=== PATIENT | male | born 1990 | race Two or more races ===

== ENCOUNTER → 2020-04-24 14:25 | Outpatient (BNVA) | payer OTHER, SELFPAY | PROVIDERS: PCP Internal Medicine; Visit Provider Internal Medicine | DX: S33.6XXD Sprain of sacroiliac joint, subsequent encounter (principal); X58.XXXD Exposure to other specified factors, subsequent encounter | CPT/HCPCS: 99213 ==

== ENCOUNTER 2021-11-03 15:53 | Outpatient (REF) | payer OTHER, MEDICAID, SELFPAY ==
[2021-11-03 18:45] LABS: Amphetamine Screen Urine Not Detected (Not Detect)
[2021-11-03 18:48] LABS: Amphetamine Screen Urine Not Detected (Not Detect); Barbiturates, Urine Not Detected (Not Detect); Benzodiazepines Screen Urine Not Detected (Not Detect); Cannabinoid Screen Urine Not Detected (Not Detect); Cocaine Screen Urine Not Detected (Not Detect); Fentanyl, urine Not Detected (Not Detect); Opiate Screen Urine Not Detected (Not Detect); Phencyclidine Screen Urine Not Detected (Not Detect)
[2021-11-07 06:31] LABS: Codeine, Ur Negative; Hydrocodone, Ur Negative; Oxycodone, Ur Negative
[2021-11-07 06:32] LABS: Hydromorphone, Ur Negative; Morphine, Ur Negative; Oxymorphone, Ur Negative
[2021-11-07 06:33] LABS: Norhydrocodone, Ur Negative; Noroxycodone, Ur Negative
[2021-11-07 06:34] LABS: Alphahydroxymidazolam,GCMS Ur Negative; Alphahydroxytriazolam, GCMS Ur Negative; Lorazepam GCMS Urine Negative; Nordiazepam, GCMS Urine Negative; Oxazepam, GCMS Urine Negative
[2021-11-07 06:35] LABS: Alprazolam, GCMS Urine Negative; Aminoclonazepam, GCMS Urine Negative; Flurazepam Metabolite,GCMS Ur Negative; Temazepam, GCMS Urine Negative
== END 2021-11-03 15:54 | disposition home or self-care (01) ==
LOC: HO.LAB 15:53
PROVIDERS: Visit Provider Nurse Practitioner Acute Care
DX: F11.90 Opioid use, unspecified, uncomplicated (principal); F41.9 Anxiety disorder, unspecified
CPT/HCPCS: 80307; 80346; 80364; 80365

== ENCOUNTER 2021-11-23 14:00 | Outpatient (REF) | payer OTHER, SELFPAY ==
[2021-11-23 14:31] LABS: MANUAL DIFF FLAG NO
[2021-11-23 14:58] LABS: Basophils Absolute Auto 0.1 X10*3/uL (0.0-0.2); Eosinophils Absolute Auto 0.2 X10*3/uL (0.0-0.4); Eosinophils Percent Auto 2.7 % (0-4); Hematocrit 49.7 % (42.0-52.0); Hemoglobin 15.9 g/dl (14.0-18.0); Imm Gran Abs Auto 0.05 X10*3/uL (0.00-0.03); Imm Gran Pct Auto 0.6 % (0.0-0.4); Lymphocytes Absolute Auto 2.7 X10*3/uL (1.2-4.9); Lymphocytes Percent Auto 31.7 % (20-40); Mean Corpuscular Hemoglobin 26.7 pg (27.0-33.0); Mean Corpuscular Volume 83.5 fL (80.0-98.0); Mean Platelet Volume 10.9 fL (9.4-12.4); Monocytes Absolute Auto 0.5 X10*3/uL (0.1-1.2); Monocytes Percent Auto 5.7 % (2-11); Neutrophils Absolute Auto 4.9 x10*3/uL (2.0-8.3); Neutrophils Percent Auto 58.3 % (45-73); Platelet Count 250 X10*3/uL (160-400); Red Blood Count 5.95 X10*6/uL (4.60-5.80); Red Cell Distribution Width 12.7 % (11.0-16.0); White Blood Count 8.4 X10*3/uL (4.8-10.8)
[2021-11-23 15:18] LABS: Alanine Aminotransferase 363 U/L (0-40); Albumin Level 4.2 g/dL (3.5-5.0); Alkaline Phosphatase 143 U/L (39-117); Anion Gap 13 (12-20); Aspartate Amino Transferase 256 U/L (5-37); Bilirubin Total 0.6 mg/dL (0.0-1.0); Blood Urea Nitrogen 10 mg/dL (9-16); Calcium 9.7 mg/dL (8.4-10.2); Carbon Dioxide 27 mmol/L (22-29); Chloride 101 mmol/L (96-108); Cholesterol 221 mg/dL; Estimated Glomerular Filt Rate > 60; Glucose Fasting 266 mg/dL (60-99); HDL Cholesterol 41 mg/dL; LDL Cholesterol Calculated 144 mg/dl; Potassium 4.5 mmol/L (3.3-5.1); Sodium 136 mmol/L (135-145); Triglycerides 180 mg/dL
[2021-11-23 15:19] LABS: Estimated Average Glucose 309 mg/dL; Hemoglobin A1c % 12.4 %
[2021-11-23 15:38] LABS: Folate 18.8 ng/mL (> or = 4.0); TSH reflex Free T4 2.19 uIU/mL (0.32-4.0); Vitamin B12 637 pg/mL (200-900)
[2021-11-28 13:00] LABS: Vitamin D 25-OH, D2 <4 ng/mL; Vitamin D 25-OH, D3 12 ng/mL; Vitamin D 25-OH, Total 12 ng/mL (30-100)
== END 2021-11-23 14:01 | disposition home or self-care (01) ==
LOC: HO.LAB 14:00
PROVIDERS: PCP Internal Medicine; Visit Provider Nurse Practitioner Acute Care
DX: Z00.00 Encounter for general adult medical examination without abnormal findings (principal)
CPT/HCPCS: 36415; 80053; 80061; 82306; 82607; 82746; 83036; 84443; 85025

== ENCOUNTER → 2022-07-21 13:54 | Outpatient (REF) | payer OTHER, SELFPAY | LOC: HO.SL 13:54 | PROVIDERS: PCP Internal Medicine; Visit Provider Internal Medicine | DX: G47.33 Obstructive sleep apnea (adult) (pediatric) (principal); R40.0 Somnolence; E66.9 Obesity, unspecified | CPT/HCPCS: 95806 ==

== ENCOUNTER → 2022-09-01 13:53 | Outpatient (BNVA) | payer OTHER, SELFPAY | PROVIDERS: PCP Internal Medicine; Visit Provider Nurse Practitioner Family | DX: G47.33 Obstructive sleep apnea (adult) (pediatric) (principal); G47.36 Sleep related hypoventilation in conditions classified elsewhere; E66.01 Morbid (severe) obesity due to excess calories; Z68.41 Body mass index [BMI] 40.0-44.9, adult | CPT/HCPCS: 99202 ==

== ENCOUNTER → 2022-10-12 19:30 | Outpatient (REF) | payer OTHER, SELFPAY | LOC: HO.SL 19:30 | PROVIDERS: PCP Internal Medicine; Referring Provider Nurse Practitioner Family; Visit Provider Internal Medicine | DX: G47.33 Obstructive sleep apnea (adult) (pediatric) (principal) | CPT/HCPCS: 95811 ==

== ENCOUNTER → 2022-12-01 13:47 | Outpatient (BNVA) | payer BC, OTHER, SELFPAY | PROVIDERS: PCP Internal Medicine; Visit Provider Nurse Practitioner Family | DX: G47.33 Obstructive sleep apnea (adult) (pediatric) (principal); R40.0 Somnolence; R03.0 Elevated blood-pressure reading, without diagnosis of hypertension; E66.01 Morbid (severe) obesity due to excess calories; Z68.41 Body mass index [BMI] 40.0-44.9, adult | CPT/HCPCS: 99212 ==

== ENCOUNTER 2023-02-28 09:14 | Outpatient (AMB) | payer BC, OTHER, SELFPAY ==
--- OUTSIDE RECORDS SUMMARY | 2023-02-28 09:15 | XMS_ITS | Continuity of Care Document ---
Author Name Unknown Organization [facility] ter Address [address] [place] [id number]- Care Team Providers Care Latin Dancer Name Role Phone Not on Staff, PCP Primary Care Physician Unavail able Encounter [facility] Date(s): 06/22/22 - 06/23/[address] [address]- Discharge Disposition: A-D/C Walkout Attending Physician: Not on Staff, Attending MD Admitting Physician: Not on Staff, Admitting MD Referring Physician: Not on Staff, Referring MD Allergies, Adverse Reactions, Alerts No Known Medication Allergies Vital Signs Most recent to oldest [Reference Range]: 1 2 Weight 128 kg (06/23/22 4:59 AM) 128 kg (06/22/22 11:09 PM) Oxygen Saturation [94-100 %] 95 % (06/23/22 4:59 AM) 95 % (06/22/22 10:33 PM) Pulse Rate [55-90 bpm] 91 bpm *H* (06/23/22 4:59 AM) 88 bpm (06/22/22 10:33 PM) Blood Pressure [90-138/55-84 mm Hg] 162/ 104mm Hg *H* (06/23/22 4:59 AM) 149/90mm Hg *H* (06/22/22 10:33 PM) Respiratory Rate [16-30 br/min] 16 br/mi n (06/23/22 4:59 AM) Temperature [96.8-100.4 DegF] 98.1 DegF (06/22/22 10:33 PM) Mode of Delivery (Oxygen) Room air (06/22/22 10:33 PM) Blood pressure sites Arm, right (06/22/22 10:33 PM) Temperature Route Oral (06/22/22 10:33 PM) Weight Obtained Via Patient/family state d (06/22/22 11:09 PM) Patient Care team information Care Team Personnel Name: Not on Staff, PCP Position: [facility] Physician (General Medicine) Member Role: PCP
[2023-02-28 09:18] VITALS: BP 120/84; PULSE 70; O2SAT 95; BMI 40.1
--- NOTE | 2023-02-28 09:18 | MHC.PC.OV ---
Vital Signs 02/28/23 09:18 Height 5 ft 9 in Weight 271 lb 4 oz BMI 40.1 BP 120/84 Blood Pressure Location Lt brachial Position Sitting Pulse 70 Pulse Source Pulse Oximeter Pulse Oximetry (%) 95 Oxygen Delivery Method Room Air Intake Visit Reasons: WC knee injury Intake Note: Pt is here for WC of the left knee injury. 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 Medication List - Last Reconciled 02/28/23 by Ginger Helms MD atorvastatin 20 mg PO BEDTIME 90 days buspirone 5 mg PO BID 90 days CPAP 16 cmH2O fluticasone propionate 50 mcg/actuation (Flonase Allergy Relief) 1 spray intranasal DAILY 30 days metformin 500 mg PO BID 90 days omeprazole 20 mg PO DAILY tramadol 50 mg PO Q8H PRN 30 days Tobacco use date assessed: 12/16/22 Dental Screening Dental Screen Date: 02/28/23 Did you have a dental visit in the last 12 months?: No Did you have a dental problem in the last 6 months where you did not have access to dental care?: Yes Was dental information given to patient?: Yes (pt scan the [facility] dentist search tool.) HPI HPI Comments History of Present Illness Details This is a 32-year-old male with morbid obesity, diabetes mellitus type 2 and anxiety that comes today for left knee injury that happened while he was at work last week. He said that he slipped in 1 tract that the floor was dirty and fell hitting his left knee. Since then has been having pain when knee flexion and extension. Able to walk with no assistive device. I will order x-ray and send him to physical therapy. He is able to lift up to 20 lb and avoid kneeling, bending and stooping. He is morbidly obese with a BMI of 40.1 and was advised to diet and exercise to reach BMI goal less than 30. Last A1c was within goal. Anxiety is present and I will increase buspirone. [facility] Medical History Degenerative disc disease at L5-S1 level Elevated BP without diagnosis of hypertension New onset type 2 diabetes mellitus Obesity (BMI 35.0-39.9 without comorbidity) Sciatica of right side associated with disorder of lumbosacral spine Surgical History No pertinent past surgical history Family History Father Diabetes Hypertension Anxiety Mother Fibromyalgia Arthritis Other Mental health disorder Social History Housing: House Alcohol intake: former Patient Tobacco Use Status: Former Tobacco user Tobacco use type: Cigarette e-Cigarette/Vaping Use: Currently Using Second Hand Smoke Exposure: No service: No Current occupational status: employed Current occupational exposures/hazards: No Cognitive needs: No Hearing needs: No Vision needs: No Questionnaire Thrive Questionnaire Date Thrive assessed: 12/16/22 JAMES-7 AMB Questionnaire JAMES-7 Date JAMES - 7 assessed: 01/10/23 Source: Developed by Drs. Talon Alvarado, Felisa Payne, Rip Chin and colleagues, with an educational janet from [employer]. Review of Systems Const All systems reviewed & are unremarkable except as noted in HPI and below Eyes Reports no additional complaints, Denies change in vision and Denies other visual disturbances ENT Denies change in voice, Denies nasal discharge and Denies sinus pain Card Denies chest pain at rest, Denies chest pain with activity, Denies edema, Denies irregular heart rhythm, Denies claudication, Denies dyspnea, Denies dyspnea on exertion, Denies orthopnea, Denies paroxysmal nocturnal dyspnea and Denies slow heart rate Resp Denies cough, Denies dyspnea and Denies dyspnea on exertion GI Denies abdominal pain, Denies change in bowel habits, Denies excessive flatus, Denies nausea and Denies vomiting Denies urinary hesitancy, Denies urinary incontinence and Denies urinary urgency Musc Denies abnormal gait, Denies atrophy, Denies deformity, Reports arthralgias and Denies limited range of motion Skin/Breast Denies bleeding lesions, Denies changing lesions and Denies rash Neuro Denies abnormal gait and Denies lack of coordination Physical exam (Primary Care) Vital Signs: Last Vital Signs Pulse 70 02/28/23 09:18 BP 120/84 02/28/23 09:18 Pulse Ox 95 02/28/23 09:18 Oxygen Delivery Method Room Air 02/28/23 09:18 BMI result Body Mass Index 40.1 Tobacco/Smoking Status: Tobacco use Status Tobacco use date assessed 12/16/22 02/28/23 09:27 Patient Tobacco Use Status Former Tobacco user 02/28/23 09:27 Tobacco use type Cigarette 02/28/23 09:27 e-Cigarette/Vaping Use Currently Using 02/28/23 09:27 Thrive Assessment: Date of Thrive Assessment Date Thrive assessed 12/16/22 02/28/23 09:27 Eyes General: appearance normal, both eyes and all related structures Eyelids: Yes eyelids normal Conjunctivae: conjunctivae normal Neck Neck: Yes normal visual inspection and Yes supple Resp Effort & Inspection: normal respiratory effort Auscultation: clear to auscultation bilaterally Cardio Jugular venous distension: no JVD Rate: regular rate Rhythm: regular rhythm Heart sounds: S1 normal heart sound present and S2 normal heart sound present Extrem General: Yes full ROM Left lower extremity: knee Details: tenderness Assessment and Plan Assessment & Plan (1) Left knee injury: Code(s): S89.92XA - Unspecified injury of left lower leg, initial encounter Plan: X-ray ordered. Start physical therapy. (2) Morbid obesity with BMI of 40.0-44.9, adult: Code(s): E66.01 - Morbid (severe) obesity due to excess calories; Z68.41 - Body mass index [BMI] 40.0-44.9, adult Plan: Start diet and exercise as tolerated. BMI goal is less than 30. (3) Diabetes mellitus: Code(s): E11.9 - Type 2 diabetes mellitus without complications Plan: Continue metformin. A1c goal is equal or less than 7%. (4) Anxiety: Code(s): F41.9 - Anxiety disorder, unspecified Plan: Increase buspirone from 5 mg twice a day to 10 mg 3 times a day. Orders: Orders PT Evaluation and Treatment Today S89.92XA - Unspecified injury of left lower leg, initial encounter XR knee LT 2V Today S89.92XA - Unspecified injury of left lower leg, initial encounter Medications: New buspirone 10 mg PO TID 90 tabs 1RF 30 days Discontinued buspirone Discontinued Reason: Patient Completed Course 5 mg PO BID 90 days 180 tabs 1RF F41.9 - Anxiety disorder, unspecified Coding Level of Care Code Est Pt Level 4 (49235) Diagnoses Left knee injury S89.92XA Morbid obesity with BMI of 40.0-44.9, adult E66.01; Z68.41 Diabetes mellitus E11.9 Anxiety F41.9 Time Spent (min) 22
== END 2023-02-28 09:59 | disposition home or self-care (01) ==
PROVIDERS: PCP Internal Medicine; Visit Provider Internal Medicine
DX: S89.92XA Unspecified injury of left lower leg, initial encounter (principal); E66.01 Morbid (severe) obesity due to excess calories; Z68.41 Body mass index [BMI] 40.0-44.9, adult; E11.9 Type 2 diabetes mellitus without complications; F41.9 Anxiety disorder, unspecified
CPT/HCPCS: 99214

== ENCOUNTER 2023-02-28 11:21 | Outpatient (REF) | payer OTHER, SELFPAY ==
--- NOTE | ~2023-02-28 | XR_ITS ---
EXAMINATION: XR KNEE, LEFT CLINICAL INFORMATION: Reason for Exam S89.92XA - Unspecified injury of left lower leg, initial encounter COMPARISON: Knee radiographs 03/12/2019 TECHNIQUE: 2 views of the knee FINDINGS: No acute fracture or dislocation. Joint spaces are maintained. No joint effusion. Soft tissues are unremarkable. XR/XR knee LT 2V IMPRESSION: * No acute osseous abnormality. * Joint spaces are maintained without significant degenerative change.
== END 2023-02-28 11:22 | disposition home or self-care (01) ==
LOC: HO.XRAY 11:21
PROVIDERS: PCP Internal Medicine; Visit Provider Internal Medicine
DX: S89.92XA Unspecified injury of left lower leg, initial encounter (principal); X58.XXXA Exposure to other specified factors, initial encounter; Y93.9 Activity, unspecified; Y92.9 Unspecified place or not applicable; Y99.9 Unspecified external cause status
CPT/HCPCS: 73560

== ENCOUNTER 2023-03-17 14:23 | Outpatient (AMB) | payer BC, OTHER, SELFPAY ==
--- NOTE | 2023-03-17 14:24 | MHC.OFFVIS ---
Intake Vital Signs 03/17/23 14:26 Height 5 ft 9 in Weight 271 lb BMI 40.0 BP 134/86 Blood Pressure Location Rt brachial Position Sitting Pulse 86 Pulse Source Pulse Oximeter Pulse Oximetry (%) 96 Oxygen Delivery Method Room Air Intake Visit Reasons: 3m f/u ALEXANDR - LVM Intake Note: Patient presents for 3 month follow up ALEXANDR. Patient states I've had issue with the mask I would wake up with a lot of gas, i was given another mask but the air is too strong Allergies acetaminophen [From TYLENOL] Allergy (Unknown, Verified 03/17/23 14:29) HX LIVER FAILURE? HPI HPI Comments History of Present Illness Details 32 y/o male patient presents for follow up of ALEXANDR. The home sleep result was severe degree of sleep apnea. The AHI was 71/hr and oxygen kosta was 48 % with average O2 sat 79%. O2 sat below 88% for 61 min, and most of the sleep was in supine position. Pt underwent sleep titration study. He was trialed on CPAP [id number]. The breathing and oxygen stabilized on CPAP [id number]. Pt started CPAP at [id number]. Pt reports that the first mask he tried caused him having too much gas and did not tolerate. He had a different mask now and feels a little better with the new mask and trying to get used to it. The CPAP compliance and therapy response (02/15/23-03/16/23) reviewed. The usage days 50 % and the average usage hours 3 hrs 30 min. [facility] Medical History Degenerative disc disease at L5-S1 level Elevated BP without diagnosis of hypertension New onset type 2 diabetes mellitus Obesity (BMI 35.0-39.9 without comorbidity) Sciatica of right side associated with disorder of lumbosacral spine Surgical History No pertinent past surgical history Family History Father Diabetes Hypertension Anxiety Mother Fibromyalgia Arthritis Other Mental health disorder Social History Housing: House Alcohol intake: former Patient Tobacco Use Status: Former Tobacco user Tobacco use type: Cigarette e-Cigarette/Vaping Use: Currently Using Second Hand Smoke Exposure: No service: No Current occupational status: employed Current occupational exposures/hazards: No Cognitive needs: No Hearing needs: No Vision needs: No Review of Systems Const All systems reviewed & are unremarkable except as noted in HPI and below ENT Reports Normal hearing present Neuro Reports Normal hearing present Physical Exam Vital Signs: Last Vital Signs Pulse 86 03/17/23 14:26 BP 134/86 03/17/23 14:26 Pulse Ox 96 03/17/23 14:26 Oxygen Delivery Method Room Air 03/17/23 14:26 BMI result Body Mass Index 40.0 Const General: cooperative Nutritional Appearance: obese Orientation/consciousness: patient oriented x3 Limitations: language barrier (Telugu speaking. ) Resp Effort & Inspection: normal respiratory effort and able to speak in complete sentences Neuro General: patient oriented x3, gait normal and moves all extremities Cranial nerves: Yes Bilaterally intact EOM present, Yes Normal facial strength present, Yes Midline tongue present, Yes Normal hearing present, Yes Ability to bilaterally rotate head present and Yes Ability to bilaterally elevate shoulders present Cognition (Neuro): normal cognition Gait exam (Neuro): Normal gait present Psych Appearance: grossly normal Mental Status: mental status grossly normal Attitude: cooperative Assessment & Plan Assessment & Plan (1) Morbid obesity with BMI of 40.0-44.9, adult: Code(s): E66.01 - Morbid (severe) obesity due to excess calories; Z68.41 - Body mass index [BMI] 40.0-44.9, adult (2) ALEXANDR (obstructive sleep apnea): Comment: Severe degree of sleep apnea. The AHI was 71/hr and the oxygen kosta was 48%. Code(s): G47.33 - Obstructive sleep apnea (adult) (pediatric) (3) Daytime somnolence: Code(s): R40.0 - Somnolence Plan Stressed compliance, use CPAP at 30xpE3D nightly and more than 4 hours. Advised patient to try CPAP while he was watching TV to get used to it. Wt reducton advised. Coding Level of Care Code Est Pt Level 3 (44809) Diagnoses Morbid obesity with BMI of 40.0-44.9, adult E66.01; Z68.41 ALEXANDR (obstructive sleep apnea) G47.33 Daytime somnolence R40.0
[2023-03-17 14:26] VITALS: BP 134/86; PULSE 86; O2SAT 96; BMI 40.0
== END 2023-03-17 14:49 | disposition home or self-care (01) ==
PROVIDERS: Visit Provider Nurse Practitioner Family
DX: E66.01 Morbid (severe) obesity due to excess calories (principal); Z68.41 Body mass index [BMI] 40.0-44.9, adult; G47.33 Obstructive sleep apnea (adult) (pediatric); R40.0 Somnolence
CPT/HCPCS: 99213

== ENCOUNTER → 2023-03-17 14:23 | Outpatient (BNVA) | payer BC, OTHER, SELFPAY | PROVIDERS: Visit Provider Nurse Practitioner Family ==

== ENCOUNTER 2023-03-20 23:31 | Emergency (ER) | payer BC, OTHER, SELFPAY ==
--- NOTE | ~2023-03-20 | XR_ITS ---
EXAMINATION: XR CHEST CLINICAL INFORMATION: Chest pain COMPARISON: Chest x-ray 02/02/2019 TECHNIQUE: Frontal view of the chest was obtained. 11:54 PM FINDINGS: No significant abnormality is noted involving the heart, lungs, mediastinum, bony thorax or soft tissues. XR/XR chest 1V IMPRESSION: Unremarkable examination.
--- NOTE | 2023-03-20 23:35 | ECG_ITS ---
Test Reason : cp Blood Pressure : / mmHG Vent. Rate : 085 BPM Atrial Rate : 085 BPM P-R Int : 148 ms QRS Dur : 090 ms QT Int : 360 ms P-R-T Axes : 047 058 018 degrees QTc Int : 428 ms Normal sinus rhythm Normal ECG No previous ECGs available Referred By: Generic ED Physician Electronically Signed By:ADOLPH LOPEZ
[2023-03-20 23:37] VITALS: BP 138/91; PULSE 87; RESP 20; TEMP 36.9; O2SAT 97; BMI 40.2
[2023-03-20 23:49] LABS: MANUAL DIFF FLAG NO
[2023-03-20 23:51] LABS: Basophils Percent Auto 0.4 % (0-2); Eosinophils Absolute Auto 0.2 X10*3/uL (0.0-0.4); Eosinophils Percent Auto 1.8 % (0-4); Hematocrit 45.2 % (42.0-52.0); Hemoglobin 14.4 g/dl (14.0-18.0); Imm Gran Abs Auto 0.03 X10*3/uL (0.00-0.03); Imm Gran Pct Auto 0.3 % (0.0-0.4); Lymphocytes Absolute Auto 3.4 X10*3/uL (1.2-4.9); Lymphocytes Percent Auto 36.2 % (20-40); Mean Corpuscular HGB Conc 31.9 g/dl (31.0-36.0); Mean Corpuscular Hemoglobin 26.1 pg (27.0-33.0); Mean Corpuscular Volume 81.9 fL (80.0-98.0); Mean Platelet Volume 10.2 fL (9.4-12.4); Monocytes Absolute Auto 0.6 X10*3/uL (0.1-1.2); Monocytes Percent Auto 6.1 % (2-11); Neutrophils Absolute Auto 5.1 x10*3/uL (2.0-8.3); Neutrophils Percent Auto 55.2 % (45-73); Platelet Count 242 X10*3/uL (160-400); Red Blood Count 5.52 X10*6/uL (4.60-5.80); Red Cell Distribution Width 13.1 % (11.0-16.0); White Blood Count 9.3 X10*3/uL (4.8-10.8)
[2023-03-20 23:54] VITALS: BP 125/81; PULSE 82; RESP 15; TEMP 36.9; O2SAT 96
--- NOTE | 2023-03-20 23:55 | ED.CHESTPAIN ---
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 Patient reports that he has had chest pain for the last month or so. His pain worsened around 3:00 p.m. today He continues to complain of left-sided chest pain that is waxing and waning His pain is worse with movement, palpation and deep breathing He states that his pain seems to be worse when he uses his vape. He also endorses that he was prescribed buspirone 3 times daily but stopped it 3 days ago He took 1 dose today due to his chest pain The patient also states that he does not use his sleep apnea machine/CPAP as directed because ?they changed my mask and is too big. Related Data Previous Rx's Medication Instructions Recorded fluticasone propionate 50 1 spray intranasal DAILY 30 days 11/25/21 mcg/actuation nasal #16 grams spray,suspension (Flonase Allergy Relief) CPAP #1 ea 10/24/22 atorvastatin 20 mg tablet 20 mg PO BEDTIME 90 days #90 tabs 01/10/23 metformin 500 mg tablet 500 mg PO BID 90 days #180 tabs 01/10/23 omeprazole 20 mg capsule,delayed 20 mg PO DAILY #30 caps 02/09/23 release buspirone 10 mg tablet 10 mg PO TID 30 days #90 tabs 02/28/23 tramadol 50 mg tablet 50 mg PO Q8H PRN pain 30 days #90 03/10/23 tabs Allergies Allergy/AdvReac Type Severity Reaction Status Date / Time acetaminophen [From TYLENOL] Allergy Unknown HX LIVER Verified 03/17/23 14:29 FAILURE? Review of Systems Constitutional: Constitutional: Denies chills and Denies fever(s) ENT: Denies dizziness Cardiovascular: Cardiovascular: Reports chest pain Gastrointestinal: Gastrointestinal: Denies abdominal pain, Denies nausea and Denies vomiting Musculoskeletal: Musculoskeletal: Denies back pain Integumentary/Breasts: Skin/Breast: Denies rash Neurologic: Denies dizziness [facility] Past Medical History Medical History Degenerative disc disease at L5-S1 level Elevated BP without diagnosis of hypertension New onset type 2 diabetes mellitus Obesity (BMI 35.0-39.9 without comorbidity) Sciatica of right side associated with disorder of lumbosacral spine Surgical History No pertinent past surgical history Family History Family History Father Diabetes Hypertension Anxiety Mother Fibromyalgia Arthritis Other Mental health disorder Social History Social History Housing: House Alcohol intake: former Patient Tobacco Use Status: Former Tobacco user Tobacco use type: Cigarette e-Cigarette/Vaping Use: Currently Using Second Hand Smoke Exposure: No Advance Directives: No Advance Directives Information Provided: Yes service: No Current occupational status: employed Current occupational exposures/hazards: No Cognitive needs: No Hearing needs: No Vision needs: No Physical Exam Vital Signs: Vital Signs: Last Vital Signs Temp 98.4 F 03/20/23 23:54 Pulse 82 03/20/23 23:54 Resp 15 03/20/23 23:54 BP 125/81 03/20/23 23:54 Pulse Ox 96 03/20/23 23:54 O2 Del Method Room Air 03/20/23 23:54 BMI result Body Mass Index 40.2 Const: General: healthy appearing, comfortable, no acute distress, alert and awake Nutritional Appearance: well nourished Orientation/consciousness: patient oriented x3 HEENT: Head: Yes normocephalic and Yes atraumatic Eyes: Eyelids: Yes eyelids normal Conjunctivae: conjunctivae normal Sclerae: sclerae normal Corneas: corneas normal Pupils: Equal, round and reactive pupils present EOM: EOMs intact bilaterally Neck: Neck: Yes full ROM Chest: Other: Left anterior chest wall tenderness Chest palpation & inspection: normal inspection of the chest Resp: Effort & Inspection: normal respiratory effort, able to speak in complete sentences, no audible wheezes and not labored Auscultation: clear to auscultation bilaterally Cardio: Rate: regular rate Rhythm: regular rhythm GI: Inspection: No distended Palpation (GI): Soft to palpation, not firm, nontender, no guarding and not rigid Skin: General skin exam: no rashes or lesions noted and elasticity normal Neuro: General: patient oriented x3 Cranial nerves: Yes Equal, round and reactive pupils present and Yes Bilaterally intact EOM present Cognition (Neuro): normal cognition Medical Decision Making Medical Decision Making [facility] Narrative: 32-year-old male presents for evaluation of chest pain. He has multiple possible etiologies including anxiety, costochondritis, GERD, muscle strain. ACS is favored to be less likely. His EKG is nonischemic, troponin is within normal range. His pain is been present for over a month but worsened 9 hours ago and his troponin is still within normal range. Essentially rules out ACS. He is PERC negative, less likely be PE. Will treat with symptomatic care and will follow-up with his PCP Differential Diagnosis Differential Diagnoses: The differential diagnosis associated with the presentation includes Anxiety, GERD, costochondritis, muscle strain, ACS, PE Admission/Observation Consideration of admission/observation: Escalation of care including admission/observation considered 32-year-old male with multiple risk factors including obesity, hyperlipidemia presents for evaluation of chest pain. ACS was effectively ruled out Lab Data [facility] Lab Attestation statement: I reviewed the patient's lab results. No leukocytosis, no anemia, no left shift, normal platelet count. Chemistries that any significant abnormalities. Patient's glucose is elevated to 133 03/20/23 23:45 03/20/23 23:45 Labs: Lab Results 03/20/23 03/20/23 03/20/23 Range/Units 23:45 23:45 23:45 WBC 9.3 (4.8-10.8) X10*3/uL RBC 5.52 (4.60-5.80) X10*6/uL Hgb 14.4 (14.0-18.0) g/dl Hct 45.2 (42.0-52.0) % MCV 81.9 (80.0-98.0) fL MCH 26.1 L (27.0-33.0) pg MCHC 31.9 (31.0-36.0) g/dl RDW 13.1 (11.0-16.0) % Plt Count 242 (160-400) X10*3/uL MPV 10.2 (9.4-12.4) fL Immature Gran % (Auto) 0.3 (0.0-0.4) % Neut % (Auto) 55.2 (45-73) % Lymph % (Auto) 36.2 (20-40) % Marion % (Auto) 6.1 (2-11) % Eos % (Auto) 1.8 (0-4) % Baso % (Auto) 0.4 (0-2) % Lymph # (Auto) 3.4 (1.2-4.9) X10*3/uL Marion # (Auto) 0.6 (0.1-1.2) X10*3/uL Eos # (Auto) 0.2 (0.0-0.4) X10*3/uL Baso # (Auto) 0.0 (0.0-0.2) X10*3/uL Abs Immat Gran (auto) 0.03 (0.00-0.03) X10*3/uL Absolute Neuts (auto) 5.1 (2.0-8.3) x10*3/uL Absolute Nucleated RBC 0.000 (0.0-0.012) X10*3/uL Nucleated RBC % (auto) 0.0 (0.0-0.2) /100WBC Sodium 141 (135-145) mmol/L Potassium 3.9 (3.3-5.1) mmol/L Chloride 108 (96-108) mmol/L Carbon Dioxide 25 (22-29) mmol/L Anion Gap 12 (12-20) BUN 11 (9-16) mg/dL Creatinine 0.84 (0.5-1.4) mg/dL Estim Creat Clear Calc 165.3 Estimated GFR > 60 Random Glucose 133 H (60-115) mg/dL Calcium 9.2 (8.4-10.2) mg/dL Troponin I High Sens 10.6 (<3.5-35.0) ng/L Independent Interpretation I performed an independent interpretation of an: EKG and Plain X-Ray (No infiltrates or effusions) Interpretation: Sinus rhythm with a rate of 85 beats minute. No ischemic changes Radiology Impression Radiologist Impression: Unremarkable examination of chest x-ray Discharge Plan Discharge Clinical Impression: Chest pain Patient Disposition: Home, Self-Care Instructions: Chest Pain (ED) Additional Instructions: Your workup in the emergency from today was reassuring. This includes your blood work, chest x-ray, EKG. I advise that you take all of your medications as prescribed You should stop using the vape if it causes chest pain Follow-up with your primary doctor Your blood pressure in the ER was slightly elevated on arrival but improved to a normal reading without any intervention Prescriptions: No Action (DME) CPAP Device See Rx Instructions .Route Qty: 1 0RF Rx Instructions: 16 cmH2O omeprazole 20 mg capsule,delayed release(DR/EC) 20 mg PO DAILY Qty: 30 3RF tramadol 50 mg tablet 50 mg PO Q8H PRN (Reason: pain) 30 Days Qty: 90 0RF fluticasone propionate [Flonase Allergy Relief] 50 mcg/actuation spray,suspension 1 spray intranasal DAILY 30 Days Qty: 16 3RF Rx Instructions: administer into each nostril metformin 500 mg tablet 500 mg PO BID 90 Days Qty: 180 1RF atorvastatin 20 mg tablet 20 mg PO BEDTIME 90 Days Qty: 90 1RF buspirone 10 mg tablet 10 mg PO TID 30 Days Qty: 90 1RF Stand Alone Forms: Work/School Release
[2023-03-21 00:02] LABS: Anion Gap 12 (12-20); Blood Urea Nitrogen 11 mg/dL (9-16); Calcium 9.2 mg/dL (8.4-10.2); Carbon Dioxide 25 mmol/L (22-29); Chloride 108 mmol/L (96-108); Creatinine Clr Calc Pharmacy 165.3; Estimated Glomerular Filt Rate > 60; Glucose Random 133 mg/dL (60-115); Potassium 3.9 mmol/L (3.3-5.1); Sodium 141 mmol/L (135-145)
[2023-03-21 00:10] LABS: Troponin-I High Sensitivity 10.6 ng/L (<3.5-35.0)
== END 2023-03-21 02:04 | disposition home or self-care (01) ==
PROVIDERS: Emergency Provider Emergency Medicine; PCP Internal Medicine
DX: R07.89 Other chest pain (principal); Z87.891 Personal history of nicotine dependence; Z79.899 Other long term (current) drug therapy
CPT/HCPCS: 36415; 71045; 80048; 84484; 85025; 93005; 99284

== ENCOUNTER 2023-03-22 12:36 | Emergency (ER) | payer BC, OTHER, SELFPAY ==
--- NOTE | ~2023-03-22 | XR_ITS ---
EXAMINATION: XR CHEST 2 VIEW CLINICAL INFORMATION: Chest pain COMPARISON: 03/20/2023 TECHNIQUE: PA and lateral views of the chest obtained. FINDINGS: The lungs are clear. There are no pleural effusions. The cardiomediastinal silhouette is normal. XR/XR chest 2V IMPRESSION: No acute cardiopulmonary disease.
--- NOTE | 2023-03-22 12:38 | ECG_ITS ---
Test Reason : cp Blood Pressure : / mmHG Vent. Rate : 090 BPM Atrial Rate : 090 BPM P-R Int : 136 ms QRS Dur : 096 ms QT Int : 344 ms P-R-T Axes : 099 144 -15 degrees QTc Int : 420 ms Suspect limb lead reversal, interpretation assumes no reversal Normal sinus rhythm Right axis deviation Abnormal QRS-T angle, consider primary T wave abnormality Abnormal ECG When compared with ECG of 20-MAR-2023 23:38, T wave inversion more evident in Inferior leads Referred By: Soledad Chilel Electronically Signed By:ADOLPH LOPEZ
[2023-03-22 13:03] VITALS: BP 139/89; PULSE 79; RESP 16; TEMP 36.6; O2SAT 96; BMI 41.3
--- NOTE | 2023-03-22 13:03 | ED_ITS ---
HPI - General Adult General Chief complaint: Chest Pain Stated complaint: Chest Pain X 2 Days Time Seen by Provider: 03/22/23 17:30 History of Present Illness HPI narrative: Patient is a 32-year-old male presents emergency department for evaluation of left anterior chest pain with radiation to the left arm. This has been present for the past month but worsening over the past week. He states he has been followed by his primary care provider he is awaiting a mammogram to be schedule d. Additionally he states he was seen in the emergency department 2 days ago for similar symptoms. Reportedly he spoke to his primary care office today, he was advised that if he was still having chest pain he should present to the emergency department for evaluation. The pain has been intermittent, exacerbated with movement palpation and deep breathing. He states it is no different than when he was evaluated 2 days ago. Related Data Previous Rx's Medication Instructions Recorded fluticasone propionate 50 1 spray intranasal DAILY 30 days 11/25/21 mcg/actuation nasal #16 grams spray,suspension (Flonase Allergy Relief) CPAP #1 ea 10/24/22 atorvastatin 20 mg tablet 20 mg PO BEDTIME 90 days #90 tabs 01/10/23 metformin 500 mg tablet 500 mg PO BID 90 days #180 tabs 01/10/23 omeprazole 20 mg capsule,delayed 20 mg PO DAILY #30 caps 02/09/23 release buspirone 10 mg tablet 10 mg PO TID 30 days #90 tabs 02/28/23 tramadol 50 mg tablet 50 mg PO Q8H PRN pain 30 days #90 03/10/23 tabs Allergies Allergy/AdvReac Type Severity Reaction Status Date / Time acetaminophen [From TYLENOL] Allergy Unknown HX LIVER Verified 03/17/23 14:29 FAILURE? Review of Systems Review of Systems: Constitutional : No Weight loss, No Fever, No Chills ENT/Mouth :? No sore throat, No Rhinorrhea Eyes: No Eye Pain, No Swelling Cardiovascular : pos Chest Pain, no SOB, no Dyspnea on Exertion, No Orthopnea, No Edema, No Palpitations Respiratory : No Cough, No Sputum Gastrointestinal : No Nausea, No Vomiting, No Diarrhea, No abdominal Pain, No Hematochezia, No Melena Genitourinary : No Dysuria, No Urinary Frequency Musculoskeletal : No joint pain, No Myalgias, No Joint Swelling Skin : No Skin Lesions, No rash Neuro : No Weakness, No Numbness, No Dizziness, No Headache Psych : No Anxiety/Panic, No Depression Heme/Lymph: No Bruising, No Lymphadenopathy Endocrine : No Polyuria, No Polydipsia Yes all other systems are reviewed and are negative [facility] Past Medical History Medical History Degenerative disc disease at L5-S1 level Elevated BP without diagnosis of hypertension New onset type 2 diabetes mellitus Obesity (BMI 35.0-39.9 without comorbidity) Sciatica of right side associated with disorder of lumbosacral spine Surgical History No pertinent past surgical history Family History Family History Father Diabetes Hypertension Anxiety Mother Fibromyalgia Arthritis Other Mental health disorder Social History Social History Housing: House Alcohol intake: former Patient Tobacco Use Status: Former Tobacco user Tobacco use type: Cigarette e-Cigarette/Vaping Use: Currently Using Second Hand Smoke Exposure: No Advance Directives: No Advance Directives Information Provided: Yes service: No Current occupational status: employed Current occupational exposures/hazards: No Cognitive needs: No Hearing needs: No Vision needs: No Physical Exam ED Vital Signs: Vital Signs - 24 hr 03/22/23 13:03 Temperature 97.9 F Pulse Rate 79 Respiratory Rate 16 Blood Pressure 139/89 Pulse Oximetry 96 Oxygen Delivery Method Room Air BMI result Body Mass Index 41.3 Appearance: Alert.?Oriented to person, place and time. No acute distress.?Nor mal affect. Eyes: Pupils equal, round and reactive to light.? ENT: Pharynx normal.?? Neck: Normal inspection.? Neck supple.?? CVS: Heart sounds normal. Normal heart rate and rhythm.? Pulses normal.?? Respiratory: No respiratory distress.? Lung sounds clear to auscultation bilaterally?? Abdomen: Soft and non-tender. Normoactive bowel sounds. ? Skin: Skin warm and dry.? Normal skin color.? Extremities: No lower extremity edema.? No calf ttp? Neuro: Moves all extremities spontaneously. Sensation intact bilaterally. No focal neuro deficits. Ambulates with normal steady gait. Course Course Course Narrative: This is an RME: Additional HPI, ROS, PE not included below will be deferred to primary provider. 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 Pt reports that he developed dizziness today. Reports that the chest pain is same pain he had 2 days ago. Patient was seen at [facility] 2 days ago where he had a unremarkable workup. Vital signs stable. Patient is nontoxic appearing. Plan: Labs and EKG ordered Reevaluation(s) Reevaluation #1: CBC reveals no leukocytosis or anemia. CMP is overall unremarkable. Troponin <2.7, EKG revealing normal sinus rhythm with ventricular rate of 73, normal [place] interval, QTC 418, no ST elevation, no ST depression, no T-wave inversion, no acute ischemic findings at this time. Chest x-ray without acute cardiopulmonary findings, no evidence of pneumonia or pneumothorax. Consistent with his workup in the emergency department 2 days ago 03/20/2023, no acute findings, recommend outpatient follow-up with his primary care provider, avoidance of using vape/smoking. Advised outpatient follow-up with his PCP, reviewed worrisome signs and symptoms that would warrant re-evaluation in the emergency department. All questions were answered. Time: 19:18 Medical Decision Making Medical Decision Making MDM Narrative: The patient is a 32-year-old male who presents emergency department for evaluation of a 2 diabetes, obesity who presents emergency department for evaluation of chest pain. PERC negative unlikely pulmonary embolism. He is well-appearing, nontoxic, afebrile. Chest pain is reproducible to deep inspiration movement and palpation. Low suspicion for ACS at this time. Most likely musculoskeletal. Will obtain CBC to evaluate for leukocytosis/ anemia, CMP and lipase to evaluate for abnormal electrolytes /abnormal renal function/ abnormal hepatic/biliary function, EKG and troponin to evaluate for ischemia/ACS. Chest x-ray to evaluate for consolidation/ infiltrate/ mass/ pulmonary congestion and Urinalysis. Differential Diagnosis Differential Diagnoses: The differential diagnosis associated with the presentation includes (ACS, pneumonia, anxiety, costochondritis, GERD, muscular strain) Admission/Observation Consideration of admission/observation: Escalation of care including admission/observation considered (Third admission for chest pain, see course narrative for further detail) Lab Data MDM Lab Attestation statement: I reviewed the patient's lab results. (See course narrative for further detail) 03/22/23 13:43 03/22/23 13:43 Labs: Lab Results 03/22/23 03/22/23 03/22/23 Range/Units 13:43 13:43 13:43 WBC 6.6 (4.8-10.8) X10*3/uL RBC 5.40 (4.60-5.80) X10*6/uL Hgb 14.3 (14.0-18.0) g/dl Hct 44.8 (42.0-52.0) % MCV 83.0 (80.0-98.0) fL MCH 26.5 L (27.0-33.0) pg MCHC 31.9 (31.0-36.0) g/dl RDW 13.2 (11.0-16.0) % Plt Count 237 (160-400) X10*3/uL MPV 10.4 (9.4-12.4) fL Immature Gran % (Auto) 0.5 H (0.0-0.4) % Neut % (Auto) 55.7 (45-73) % Lymph % (Auto) 34.2 (20-40) % [place] % (Auto) 6.1 (2-11) % Eos % (Auto) 2.6 (0-4) % Baso % (Auto) 0.9 (0-2) % Lymph # (Auto) 2.3 (1.2-4.9) X10*3/uL [place] # (Auto) 0.4 (0.1-1.2) X10*3/uL Eos # (Auto) 0.2 (0.0-0.4) X10*3/uL Baso # (Auto) 0.1 (0.0-0.2) X10*3/uL Abs Immat Gran (auto) 0.03 (0.00-0.03) X10*3/uL Absolute Neuts (auto) 3.7 (2.0-8.3) x10*3/uL Absolute Nucleated RBC 0.000 (0.0-0.012) X10*3/uL Nucleated RBC % (auto) 0.0 (0.0-0.2) /100WBC Sodium 141 (135-145) mmol/L Potassium 3.9 (3.3-5.1) mmol/L Chloride 108 (96-108) mmol/L Carbon Dioxide 28 (22-29) mmol/L Anion Gap 9 L (12-20) BUN 9 (9-16) mg/dL Creatinine 0.75 (0.5-1.4) mg/dL Estim Creat Clear Calc 188.0 Estimated GFR > 60 Random Glucose 125 H (60-115) mg/dL Calcium 9.7 (8.4-10.2) mg/dL Total Bilirubin 0.2 (0.0-1.0) mg/dL Direct Bilirubin < 0.2 (0.0-0.5) mg/dL AST 24 (5-37) U/L ALT 34 (0-40) U/L Alkaline Phosphatase 82 (39-117) U/L Troponin I High Sens < 2.7 D (<3.5-35.0) ng/L Total Protein 7.2 (6.5-8.0) g/dL Albumin 4.1 (3.5-5.0) g/dL Independent Interpretation I performed an independent interpretation of an: EKG (As per course narrative) and Plain X-Ray (I personally interpreted chest x-ray and agree with radiologist impression, no evidence of pneumonia) Radiology Impression Discussion of test interpretation with radiology: I have reviewed the radiologist's reading. Radiologist Impression: XR/XR chest 2V IMPRESSION: No acute cardiopulmonary disease. External Record Review External record reviewed: Outpatient record Discharge Plan Discharge Clinical Impression: Chest pain Patient Disposition: Home, Self-Care Instructions: Chest Pain (ED), Noncardiac Chest Pain (ED) Prescriptions: No Action (DME) CPAP Device See Rx Instructions .Route Qty: 1 0RF Rx Instructions: 16 cmH2O omeprazole 20 mg capsule,delayed release(DR/EC) 20 mg PO DAILY Qty: 30 3RF tramadol 50 mg tablet 50 mg PO Q8H PRN (Reason: pain) 30 Days Qty: 90 0RF fluticasone propionate [Flonase Allergy Relief] 50 mcg/actuation spray,suspension 1 spray intranasal DAILY 30 Days Qty: 16 3RF Rx Instructions: administer into each nostril metformin 500 mg tablet 500 mg PO BID 90 Days Qty: 180 1RF atorvastatin 20 mg tablet 20 mg PO BEDTIME 90 Days Qty: 90 1RF buspirone 10 mg tablet 10 mg PO TID 30 Days Qty: 90 1RF Referrals: Ginger Mock MD [Primary Care Provider] -
[2023-03-22 13:49] LABS: MANUAL DIFF FLAG NO
[2023-03-22 13:50] LABS: Basophils Absolute Auto 0.1 X10*3/uL (0.0-0.2); Basophils Percent Auto 0.9 % (0-2); Eosinophils Absolute Auto 0.2 X10*3/uL (0.0-0.4); Eosinophils Percent Auto 2.6 % (0-4); Hematocrit 44.8 % (42.0-52.0); Hemoglobin 14.3 g/dl (14.0-18.0); Imm Gran Abs Auto 0.03 X10*3/uL (0.00-0.03); Imm Gran Pct Auto 0.5 % (0.0-0.4); Lymphocytes Absolute Auto 2.3 X10*3/uL (1.2-4.9); Lymphocytes Percent Auto 34.2 % (20-40); Mean Corpuscular HGB Conc 31.9 g/dl (31.0-36.0); Mean Corpuscular Hemoglobin 26.5 pg (27.0-33.0); Mean Platelet Volume 10.4 fL (9.4-12.4); Monocytes Absolute Auto 0.4 X10*3/uL (0.1-1.2); Monocytes Percent Auto 6.1 % (2-11); Neutrophils Absolute Auto 3.7 x10*3/uL (2.0-8.3); Neutrophils Percent Auto 55.7 % (45-73); Platelet Count 237 X10*3/uL (160-400); Red Cell Distribution Width 13.2 % (11.0-16.0); White Blood Count 6.6 X10*3/uL (4.8-10.8)
[2023-03-22 14:06] LABS: Alanine Aminotransferase 34 U/L (0-40); Albumin Level 4.1 g/dL (3.5-5.0); Alkaline Phosphatase 82 U/L (39-117); Anion Gap 9 (12-20); Aspartate Amino Transferase 24 U/L (5-37); Bilirubin Direct < 0.2 mg/dL (0.0-0.5); Bilirubin Total 0.2 mg/dL (0.0-1.0); Blood Urea Nitrogen 9 mg/dL (9-16); Calcium 9.7 mg/dL (8.4-10.2); Carbon Dioxide 28 mmol/L (22-29); Chloride 108 mmol/L (96-108); Estimated Glomerular Filt Rate > 60; Glucose Random 125 mg/dL (60-115); Potassium 3.9 mmol/L (3.3-5.1); Sodium 141 mmol/L (135-145); Total Protein 7.2 g/dL (6.5-8.0)
[2023-03-22 14:11] LABS: Troponin-I High Sensitivity < 2.7 ng/L (<3.5-35.0)
--- NOTE | 2023-03-22 18:13 | ECG_ITS ---
Test Reason : repeat Blood Pressure : / mmHG Vent. Rate : 073 BPM Atrial Rate : 073 BPM P-R Int : 136 ms QRS Dur : 092 ms QT Int : 380 ms P-R-T Axes : 061 146 035 degrees QTc Int : 418 ms Normal sinus rhythm Left posterior fascicular block Abnormal ECG When compared with ECG of 22-MAR-2023 12:40, No significant change was found Referred By: Lilia Dominguez Electronically Signed By:ADOLPH LOPEZ
== END 2023-03-22 20:24 | disposition home or self-care (01) ==
PROVIDERS: Physician Assistant Medical; Emergency Provider Emergency Medicine; PCP Internal Medicine
DX: R07.9 Chest pain, unspecified (principal); E11.9 Type 2 diabetes mellitus without complications; E78.5 Hyperlipidemia, unspecified; E66.9 Obesity, unspecified; Z68.41 Body mass index [BMI] 40.0-44.9, adult; Z79.84 Long term (current) use of oral hypoglycemic drugs; Z79.899 Other long term (current) drug therapy
CPT/HCPCS: 36415; 71046; 80048; 80076; 84484; 85025; 93005; 99283

== ENCOUNTER 2023-04-27 13:54 | Outpatient (AMB) | payer BC, OTHER, SELFPAY ==
[2023-04-27 13:59] VITALS: BP 138/96; PULSE 85; O2SAT 95; BMI 40.9
--- NOTE | 2023-04-27 13:59 | MHC.PC.OV ---
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 Tobacco use date assessed: 04/27/23 Dental Screening Dental Screen Date: 04/27/23 Did you have a dental visit in the last 12 months?: No Did you have a dental problem in the last 6 months where you did not have access to dental care?: No Was dental information given to patient?: Patient has dentist HPI HPI Comments History of Present Illness Details 32-year-old male past medical history significant for anxiety, hyperlipidemia, degenerative disc disease, vitamin-D deficiency, diabetes mellitus ALEXANDR, GERD, depression. Patient presents today for multiple emergency room visits for chest pain. CBC and CMP unremarkable troponin less than 2.7, EKG revealed normal sinus rhythm with ventricular rate 73, no ST elevation, depressions and no T-wave inversions. No acute ischemic findings were noted at that time. Chest x-ray without any acute cardiopulmonary findings no evidence pneumonia or pneumothorax. Which was consistent with his previous workup that was also completed on 03/12/2023. Patient reports continues to have chest pain, sharp burning left-sided chest pain that occasionally radiates to his left arm. Patient denies sob nausea and diaphoresis associated with the pain. Patient reports that the chest pain comes and goes states at times it does happen when he is feeling anxious but other times it occurs when he is not feeling anxious. Patient denies chest pain, palpitations, shortness of breath and syncope at this time of appointment. Patient noted to have elevated blood pressure today 139/96 and has been elevated at 3 previous visits as well. Family history positive for hypertension discussed starting patient on low-dose antihypertensive medication. [facility] Medical History Degenerative disc disease at L5-S1 level Elevated BP without diagnosis of hypertension New onset type 2 diabetes mellitus Obesity (BMI 35.0-39.9 without comorbidity) Sciatica of right side associated with disorder of lumbosacral spine Surgical History No pertinent past surgical history Family History Father Diabetes Hypertension Anxiety Mother Fibromyalgia Arthritis Other Mental health disorder Social History Housing: House Alcohol intake: former Patient Tobacco Use Status: Former Tobacco user Tobacco use type: Cigarette e-Cigarette/Vaping Use: Currently Using Second Hand Smoke Exposure: No service: No Current occupational status: employed Current occupational exposures/hazards: No Cognitive needs: No Hearing needs: No Vision needs: No Questionnaire Thrive Questionnaire Date Thrive assessed: 12/16/22 AUDIT C Alcohol Use Questionnaire (AUDIT-C) 1. How often do you have a drink containing alcohol?: Never Total Score: 0 JAMES-7 AMB Questionnaire JAMES-7 Date JAMES - 7 assessed: 01/10/23 Source: Developed by Drs. Talon Alvarado, Felisa Payne, Rip Chin and colleagues, with an educational janet from [employer]. Review of Systems Const Denies chills, Denies fatigue, Denies fever(s) and Denies poor appetite Eyes Denies no additional complaints ENT Reports Normal hearing present Card Denies chest pain, Denies syncope, Denies rapid heart rate and Denies dyspnea Resp Denies cough and Denies dyspnea GI Denies change in stool character, Denies constipation, Denies diarrhea, Denies nausea and Denies vomiting Denies dysuria, Denies urinary frequency and Denies urinary urgency Neuro Reports Normal hearing present, Denies confusion and Denies syncope Psych Denies confusion Endo Denies fatigue Physical exam (Primary Care) Vital Signs: Last Vital Signs Pulse 85 04/27/23 13:59 BP 138/96 H 04/27/23 13:59 Pulse Ox 95 04/27/23 13:59 Oxygen Delivery Method Room Air 04/27/23 13:59 BMI result Body Mass Index 40.9 Tobacco/Smoking Status: Tobacco use Status Tobacco use date assessed 04/27/23 04/27/23 14:00 Patient Tobacco Use Status Former Tobacco user 04/27/23 14:00 Tobacco use type Cigarette 04/27/23 14:00 e-Cigarette/Vaping Use Currently Using 04/27/23 14:00 Thrive Assessment: Date of Thrive Assessment Date Thrive assessed 12/16/22 04/27/23 14:00 Const General: No confusion Orientation/consciousness: No confusion HENMT Head: Yes normocephalic and Yes atraumatic Eyes Conjunctivae: conjunctivae normal Chest Chest palpation & inspection: normal inspection of the chest Resp Effort & Inspection: normal respiratory effort Auscultation: clear to auscultation bilaterally, no crackles, no rhonchi and no wheezes Cardio Rate: regular rate Rhythm: regular rhythm Heart sounds: S1 normal heart sound present and S2 normal heart sound present GI Inspection: Yes normal to inspection Neuro General: No confusion Cranial nerves: Yes Normal hearing present Extrem General: No edema Assessment and Plan Assessment & Plan (1) Hypertension: Code(s): I10 - Essential (primary) hypertension Plan: Will initiate patient on lisinopril 2.5 mg daily given patient's history of diabetes in this medication is renal protective. Blood pressure goal less than 140/90. Follow low-salt diet and exercise. (2) Intermittent chest pain: Code(s): R07.9 - Chest pain, unspecified Plan: Given patient continues to experience recurrent episodes of intermittent chest pain associated at times with anxiety but not always correlated with his anxiety will proceed with exercise stress test to further evaluate. Patient agreeable with plan of care Signs and symptoms reviewed with patient when to seek emergency medical attention. (3) Anxiety: Code(s): F41.9 - Anxiety disorder, unspecified Plan: Continue on buspirone 10 mg t.i.d.. Patient requesting new referral for a counselor as that counselor he was previously set with was not Tuval[place]-speaking. Referral entered with note stating patient requesting Tuvaluan-speaking counselor. (4) ALEXANDR (obstructive sleep apnea): Comment: Severe degree of sleep apnea. The AHI was 71/hr and the oxygen kosta was 48%. Code(s): G47.33 - Obstructive sleep apnea (adult) (pediatric) Plan: Continue to use CPAP nightly for greater than 4 hours a night with good effect (5) GERD (gastroesophageal reflux disease): Code(s): K21.9 - Gastro-esophageal reflux disease without esophagitis Plan: Continue on omeprazole 20 mg daily. Avoid the foods that cause that, usually spicy foods, tomato products, juices, coffee, soda and foods that you're sensitive to.? After eating do not lie down, allow 3-4 hours before lying down. And keep the head of the bed above 30 degrees to avoid the acid from going up. (6) Diabetes mellitus: Code(s): E11.9 - Type 2 diabetes mellitus without complications Plan: Continue on metformin 500 mg b.i.d. Patient educated to decrease the amount of carbohydrate intake such as pasta, bread, rice and potatoes are all sugar in addition to the sweet stuff. Remember that fruits are good but they also have sugar Plan Keep scheduled follow-up appointment with PCP. Orders: Orders CA stress test 04/27/23 R07.9 - Chest pain, unspecified Referrals Counseling Referral F32.0 - Major depressive disorder, single episode, mild, F41.9 - Anxiety disorder, unspecified Medications: New lisinopril 2.5 mg PO DAILY 30 tabs 3RF I10 - Essential (primary) hypertension Coding Level of Care Code Est Pt Level 4 (74784) Diagnoses Hypertension I10 Intermittent chest pain R07.9 Anxiety F41.9 ALEXANDR (obstructive sleep apnea) G47.33 GERD (gastroesophageal reflux disease) K21.9 Diabetes mellitus E11.9
== END 2023-04-27 14:34 | disposition home or self-care (01) ==
PROVIDERS: PCP Internal Medicine; Visit Provider Nurse Practitioner Family
DX: E11.9 Type 2 diabetes mellitus without complications (principal); I10 Essential (primary) hypertension; R07.9 Chest pain, unspecified; F41.9 Anxiety disorder, unspecified; G47.33 Obstructive sleep apnea (adult) (pediatric); K21.9 Gastro-esophageal reflux disease without esophagitis
CPT/HCPCS: 99214

== ENCOUNTER 2023-05-24 13:36 | Outpatient (AMB) | payer BC, OTHER, SELFPAY ==
[2023-05-24 13:44] VITALS: BP 132/86; PULSE 97; O2SAT 95; BMI 40.6
--- NOTE | 2023-05-24 13:44 | MHC.PC.OV ---
Vital Signs 05/24/23 13:44 Height 5 ft 9 in Weight 275 lb BMI 40.6 BP 132/86 Blood Pressure Location Lt brachial Position Sitting Pulse 97 Pulse Source Pulse Oximeter Pulse Oximetry (%) 95 Oxygen Delivery Method Room Air Intake Visit Reasons: 4 months F/U DM Intake Note: Patient here for a 4 shakeel follow up DM Preform Plate Maker Required: No Accompanied by: Self / Same As Patient Allergies acetaminophen [From TYLENOL] Allergy (Unknown, Verified 05/24/23 13:50) HX LIVER FAILURE? Medication List - Last Reconciled 05/24/23 by Ginger Helms MD atorvastatin 20 mg PO BEDTIME 90 days buspirone 10 mg PO TID 30 days cholecalciferol (vitamin D3) 50 mcg PO DAILY CPAP 16 cmH2O fluticasone propionate 50 mcg/actuation (Flonase Allergy Relief) 1 spray intranasal DAILY 30 days lisinopril 2.5 mg PO DAILY metformin 500 mg PO BID 90 days omeprazole 20 mg PO DAILY tramadol 50 mg PO Q8H PRN 30 days Tobacco use date assessed: 04/27/23 Dental Screening Dental Screen Date: 05/24/23 Did you have a dental visit in the last 12 months?: No Did you have a dental problem in the last 6 months where you did not have access to dental care?: No Was dental information given to patient?: Patient has dentist HPI HPI Comments History of Present Illness Details This is a 32-year-old male with diabetes mellitus type 2, GERD, anxiety and morbid obesity that comes today for follow-up on his conditions. A1c within goal. GERD stable with PPIs. Anxiety still present with buspirone. He is morbidly obese with a BMI of 40.6 and was advised to diet and exercise to reach BMI goal less than 30. [facility] Medical History New onset type 2 diabetes mellitus Elevated BP without diagnosis of hypertension Obesity (BMI 35.0-39.9 without comorbidity) Sciatica of right side associated with disorder of lumbosacral spine Degenerative disc disease at L5-S1 level Surgical History No pertinent past surgical history Family History Father Diabetes Hypertension Anxiety Mother Fibromyalgia Arthritis Other Mental health disorder Social History Housing: House Alcohol intake: former Patient Tobacco Use Status: Former Tobacco user Tobacco use type: Cigarette e-Cigarette/Vaping Use: Currently Using Second Hand Smoke Exposure: No service: No Current occupational status: employed Current occupational exposures/hazards: No Cognitive needs: No Hearing needs: No Vision needs: No Questionnaire Thrive Questionnaire Date Thrive assessed: 12/16/22 JAMES-7 AMB Questionnaire JAMES-7 Date JAMES - 7 assessed: 01/10/23 Source: Developed by Drs. Talon Alvarado, Felisa Payne, Rip Chin and colleagues, with an educational janet from [employer]. Review of Systems Const All systems reviewed & are unremarkable except as noted in HPI and below Eyes Reports no additional complaints, Denies change in vision and Denies other visual disturbances Card Denies chest pain at rest, Denies chest pain with activity, Denies edema, Denies irregular heart rhythm, Denies claudication, Denies dyspnea, Denies dyspnea on exertion, Denies orthopnea, Denies paroxysmal nocturnal dyspnea and Denies slow heart rate Resp Denies cough, Denies dyspnea and Denies dyspnea on exertion GI Denies abdominal pain, Denies change in bowel habits, Denies excessive flatus, Denies nausea and Denies vomiting Denies urinary hesitancy, Denies urinary incontinence and Denies urinary urgency Musc Denies abnormal gait, Denies atrophy, Denies deformity and Denies limited range of motion Skin/Breast Denies bleeding lesions, Denies changing lesions and Denies rash Neuro Denies abnormal gait and Denies lack of coordination Physical exam (Primary Care) Vital Signs: Last Vital Signs Pulse 97 05/24/23 13:44 BP 132/86 05/24/23 13:44 Pulse Ox 95 05/24/23 13:44 Oxygen Delivery Method Room Air 05/24/23 13:44 BMI result Body Mass Index 40.6 Tobacco/Smoking Status: Tobacco use Status Tobacco use date assessed 04/27/23 05/24/23 13:46 Patient Tobacco Use Status Former Tobacco user 05/24/23 13:46 Tobacco use type Cigarette 05/24/23 13:46 e-Cigarette/Vaping Use Currently Using 05/24/23 13:46 Thrive Assessment: Date of Thrive Assessment Date Thrive assessed 12/16/22 05/24/23 13:46 Eyes General: appearance normal, both eyes and all related structures Eyelids: Yes eyelids normal Conjunctivae: conjunctivae normal Neck Neck: Yes normal visual inspection and Yes supple Resp Effort & Inspection: normal respiratory effort Auscultation: clear to auscultation bilaterally Cardio Jugular venous distension: no JVD Rate: regular rate Rhythm: regular rhythm Heart sounds: S1 normal heart sound present and S2 normal heart sound present Extrem General: Yes full ROM Office Procedures Flu Questionnaire Does the patient have a severe egg allergy?: No Results AMB Hemoglobin A1c AMB Hemoglobin A1c 5.9 % Last Edit by OSVALDO Ram on 05/24/23 13:51 Immunizations flu vacc [id number] 6mos up(PF) 60 mcg(15 mcgx4)/0.5 mL IM syringe Performing Provider: Ginger Helms MD [facility] Documented (not given) by: OSVALDO Ram on 05/24/23 13:46 Reason Not Given: Patient Refused Results Reviewed Results Reviewed: Laboratory Last Values Hgb A1c (Clinic) 5.9 % (4.0-6.0) 05/24/23 13:40 Assessment and Plan Assessment & Plan (1) Diabetes mellitus: Code(s): E11.9 - Type 2 diabetes mellitus without complications Plan: Continue metformin. A1c goal is equal or less than 7%. (2) Morbid obesity with BMI of 40.0-44.9, adult: Code(s): E66.01 - Morbid (severe) obesity due to excess calories; Z68.41 - Body mass index [BMI] 40.0-44.9, adult Plan: Start diet and exercise. BMI goal is less than 30. (3) Anxiety: Code(s): F41.9 - Anxiety disorder, unspecified Plan: Continue buspirone. (4) GERD (gastroesophageal reflux disease): Code(s): K21.9 - Gastro-esophageal reflux disease without esophagitis Plan: Continue PPIs. Orders: Orders AMB Hemoglobin A1c Today E11.9 - Type 2 diabetes mellitus without complications Microalbumin, Random (w Creat) Today E11.9 - Type 2 diabetes mellitus without complications Microalbumin, Random (w Creat) 3 Months E11.9 - Type 2 diabetes mellitus without complications Vitamin D 25-OH Total Today E55.9 - Vitamin D deficiency, unspecified Comprehensive [place]. Panel Fast 3 Months E11.9 - Type 2 diabetes mellitus without complications Influenza [id number] Immunization Today Z23 - Encounter for immunization Lipid Panel Today E78.5 - Hyperlipidemia, unspecified Comprehensive [place]. Panel Fast Today E11.9 - Type 2 diabetes mellitus without complications Lipid Panel 3 Months E78.5 - Hyperlipidemia, unspecified Medications: Refilled fluticasone propionate 50 mcg/actuation (Flonase Allergy Relief) administer into each nostril 1 spray intranasal DAILY 30 days 16 grams 3RF Coding Level of Care Code Est Pt Level 4 (95217) Diagnoses Diabetes mellitus E11.9 Morbid obesity with BMI of 40.0-44.9, adult E66.01; Z68.41 Anxiety F41.9 GERD (gastroesophageal reflux disease) K21.9 Time Spent (min) 22
== END 2023-05-24 13:57 | disposition home or self-care (01) ==
PROVIDERS: PCP Internal Medicine; Visit Provider Internal Medicine
DX: E11.9 Type 2 diabetes mellitus without complications (principal); E66.01 Morbid (severe) obesity due to excess calories; Z68.41 Body mass index [BMI] 40.0-44.9, adult; F41.9 Anxiety disorder, unspecified; K21.9 Gastro-esophageal reflux disease without esophagitis
CPT/HCPCS: 83036; 99214

== ENCOUNTER 2023-06-14 10:22 | Outpatient (REF) | payer BC, OTHER, SELFPAY ==
[2023-06-14 10:49] LABS: MANUAL DIFF FLAG NO
[2023-06-14 11:12] LABS: Appearance Urine Clear; Color Urine Yellow; Glucose Urine UA Negative (Negative); Leukocyte Esterase Urine Small (1+) (Negative); Nitrite Urine Negative (Negative); Specific Gravity - Urine 1.025 (1.005-1.025); UMIC TRIGGER UACC YES; Urine Blood Negative (Negative); Urine Ketones Negative (Negative); Urine Protein Negative (Neg-Trace)
[2023-06-14 11:13] LABS: Basophils Absolute Auto 0.1 X10*3/uL (0.0-0.2); Basophils Percent Auto 0.5 % (0-2); Eosinophils Absolute Auto 0.1 X10*3/uL (0.0-0.4); Hematocrit 44.7 % (42.0-52.0); Hemoglobin 14.2 g/dl (14.0-18.0); Imm Gran Abs Auto 0.05 X10*3/uL (0.00-0.03); Imm Gran Pct Auto 0.4 % (0.0-0.4); Lymphocytes Percent Auto 17.2 % (20-40); Mean Corpuscular HGB Conc 31.8 g/dl (31.0-36.0); Mean Corpuscular Volume 81.7 fL (80.0-98.0); Mean Platelet Volume 10.4 fL (9.4-12.4); Monocytes Absolute Auto 1.1 X10*3/uL (0.1-1.2); Monocytes Percent Auto 9.2 % (2-11); Neutrophils Absolute Auto 8.2 x10*3/uL (2.0-8.3); Neutrophils Percent Auto 71.7 % (45-73); Platelet Count 228 X10*3/uL (160-400); Red Blood Count 5.47 X10*6/uL (4.60-5.80); Red Cell Distribution Width 12.8 % (11.0-16.0); White Blood Count 11.5 X10*3/uL (4.8-10.8)
[2023-06-14 11:15] LABS: Bacteria Urine None Seen (None Seen); Hyaline Casts Urine 0-2 /LPF (0-2); RBC Urine 0-2 /HPF (0-2); Squamous Epithelial Cell Urine 0-2 /HPF (0-2); UACC Culture Trigger YES
[2023-06-14 11:27] LABS: Creatinine Urine 211.72 mg/dL; Microalbum/Creatinine Ratio Ur 6.6 ug/mg cr (<30)
[2023-06-14 11:34] LABS: Influenza A PCR NEGATIVE (Negative); Influenza B PCR NEGATIVE (Negative); Resp Syncy Virus RNA Qual PCR NEGATIVE (Negative); SARS COV2 PCR INHOUSE NEGATIVE (Negative)
[2023-06-14 11:38] LABS: Alanine Aminotransferase 31 U/L (0-40); Albumin Level 4.6 g/dL (3.5-5.0); Alkaline Phosphatase 98 U/L (39-117); Anion Gap 10 (12-20); Aspartate Amino Transferase 19 U/L (5-37); Bilirubin Total 0.4 mg/dL (0.0-1.0); Blood Urea Nitrogen 12 mg/dL (9-16); Calcium 9.9 mg/dL (8.4-10.2); Carbon Dioxide 27 mmol/L (22-29); Chloride 104 mmol/L (96-108); Cholesterol 115 mg/dL (<200); Estimated Glomerular Filt Rate > 60; Glucose Fasting 119 mg/dL (60-99); HDL Cholesterol 40 mg/dL (>40); LDL Cholesterol Calculated 56 mg/dL (<100); Potassium 3.9 mmol/L (3.3-5.1); Sodium 137 mmol/L (135-145); Triglycerides 97 mg/dL (<150)
[2023-06-14 11:58] LABS: Thyroid Stimulating Hormone 1.35 uIU/mL (0.32-4.0); Vitamin D 25-OH Total 21.5 ng/mL (>30)
== END 2023-06-14 10:23 | disposition home or self-care (01) ==
LOC: HO.LAB 10:22
PROVIDERS: PCP Internal Medicine; Visit Provider Internal Medicine
DX: Z11.52 Encounter for screening for COVID-19 (principal); Z20.822 Contact with and (suspected) exposure to COVID-19; E78.5 Hyperlipidemia, unspecified; E55.9 Vitamin D deficiency, unspecified; E11.9 Type 2 diabetes mellitus without complications; E66.01 Morbid (severe) obesity due to excess calories; Z68.41 Body mass index [BMI] 40.0-44.9, adult; R09.89 Other specified symptoms and signs involving the circulatory and respiratory systems; R30.0 Dysuria
CPT/HCPCS: 0241U; 80053; 80061; 81001; 82043; 82306; 82570; 84443; 85025; 87086

== ENCOUNTER 2023-07-03 16:28 | Emergency (ER) | payer BC, OTHER, SELFPAY ==
--- NOTE | ~2023-07-03 | XR_ITS ---
EXAMINATION: XR CHEST CLINICAL INFORMATION: Cough COMPARISON: 03/22/2023 TECHNIQUE: 2 views of the chest were obtained. FINDINGS: No significant abnormality is noted involving the heart, lungs, mediastinum, bony thorax or soft tissues. XR/XR chest 2V IMPRESSION: Unremarkable examination.
[2023-07-03 17:10] VITALS: BP 136/86; PULSE 116; RESP 22; TEMP 37.2; O2SAT 96; BMI 40.2
--- NOTE | 2023-07-03 17:48 | ED.GENADULT ---
HPI - General Adult General Chief complaint: Upper Respiratory Symptoms Stated complaint: fever, sore throat, headache, body ache Time Seen by Provider: 07/03/23 19:57 Source: patient and RN notes reviewed Mode of arrival: ambulatory Limitations: no limitations History of Present Illness HPI narrative: Pt is a 32yo male who presents to the ED with a sore throat, body aches, and fever since yesterday. Pt denies sick contacts but states that his sx began yesterday. Notes subjective fever/chills, sore throat, nasal congestion, low back pain, and body aches. Pt took tylenol without relief. Related Data Home Medications Medication Instructions Recorded Confirmed cholecalciferol (vitamin D3) 50 50 mcg PO DAILY 05/24/23 05/24/23 mcg (2,000 unit) capsule Previous Rx's Medication Instructions Recorded CPAP #1 ea 10/24/22 atorvastatin 20 mg tablet 20 mg PO BEDTIME 90 days #90 tabs 01/10/23 metformin 500 mg tablet 500 mg PO BID 90 days #180 tabs 01/10/23 lisinopril 2.5 mg tablet 2.5 mg PO DAILY #30 tabs 04/27/23 buspirone 10 mg tablet 10 mg PO TID 30 days #90 tabs 05/04/23 fluticasone propionate 50 1 spray intranasal DAILY 30 days 05/24/23 mcg/actuation nasal #16 grams spray,suspension (Flonase Allergy Relief) omeprazole 20 mg capsule,delayed 20 mg PO DAILY #30 caps 06/06/23 release tramadol 50 mg tablet 50 mg PO Q8H PRN pain 30 days #90 06/06/23 tabs amoxicillin 875 mg-potassium 1 tab PO Q12H #14 tabs 07/03/23 clavulanate 125 mg tablet Allergies Allergy/AdvReac Type Severity Reaction Status Date / Time acetaminophen [From TYLENOL] Allergy Unknown HX LIVER Verified 07/03/23 17:14 FAILURE? Review of Systems Constitutional: Constitutional: Reports chills, Reports fatigue, Reports fever(s), Denies headache(s), Reports lethargy and Reports malaise Eyes: Eyes: Denies change in vision ENT: Denies dizziness, Reports otalgia, Denies headache(s), Reports nasal congestion and Reports sore throat Cardiovascular: Cardiovascular: Denies chest pain and Denies dyspnea Respiratory: Respiratory: Denies cough and Denies dyspnea Gastrointestinal: Gastrointestinal: Denies abdominal pain, Denies constipation, Denies diarrhea, Denies nausea and Denies vomiting Genitourinary: Genitourinary: Denies dysuria Musculoskeletal: Musculoskeletal: Reports back pain and Reports myalgias Neurologic: Denies dizziness and Denies headache(s) Endocrine: Endocrine: Reports fatigue PMFSH Past Medical History Medical History New onset type 2 diabetes mellitus Elevated BP without diagnosis of hypertension Obesity (BMI 35.0-39.9 without comorbidity) Sciatica of right side associated with disorder of lumbosacral spine Degenerative disc disease at L5-S1 level Surgical History No pertinent past surgical history Family History Family History Father Diabetes Hypertension Anxiety Mother Fibromyalgia Arthritis Other Mental health disorder Social History Social History Housing: House Alcohol intake: former Patient Tobacco Use Status: Former Tobacco user Tobacco use type: Cigarette e-Cigarette/Vaping Use: Currently Using Second Hand Smoke Exposure: No Advance Directives: No Advance Directives Information Provided: Yes service: No Current occupational status: employed Current occupational exposures/hazards: No Cognitive needs: No Hearing needs: No Vision needs: No Physical Exam ED Vital Signs: Vital Signs - 24 hr 07/03/23 17:10 Temperature 98.9 F Pulse Rate 116 H Respiratory Rate 22 H Blood Pressure 136/86 Pulse Oximetry 96 Oxygen Delivery Method Room Air BMI result Body Mass Index 40.2 Const General: cooperative, no acute distress, alert, awake and ill appearing Orientation/consciousness: patient oriented x3 HENMT Head: Yes normal to inspection Ears: hearing grossly normal bilaterally, external ears normal, TM normal on the right and left TM abnormal (unable to visualize due to cerumen impaction) General nose exam: Normal external nose present Mouth: Normal oral and palatal mucosa present Throat: Yes posterior oropharynx abnormal (exudate and erythema), No uvular edema and No cobblestoning Eyes General: appearance normal, both eyes and all related structures Resp Effort & Inspection: normal respiratory effort and able to speak in complete sentences Neuro General: patient oriented x3 Medical Decision Making Medical Decision Making MDM Narrative: 32-year-old male presents for evaluation of upper respiratory symptoms. He is negative for flu, COVID RSV, strep pharyngitis. He is tachycardic, with exudate, there is no evidence of peritonsillar abscess. will treat with Augmentin b.i.d. x7 days. Differential Diagnosis Differential Diagnoses: The differential diagnosis associated with the presentation includes (strep pharyngitis, mono, viral pharyngitis, otitis media, sinusitis) Lab Data Labs: Lab Results 07/03/23 07/03/23 Range/Units 17:56 19:07 COVID-19 (RANI) Negative (Negative) COVID-19 Clin Com See Note Influenza Type A (KIRSTY) Cancelled Negative Influenza Type B (KIRSTY) Cancelled Negative Influenza A & B Note Cancelled See Note S. pyogenes GrpA KIRSTY Negative (Negative) Discharge Plan Discharge Clinical Impression: Exudative pharyngitis Patient Disposition: Home, Self-Care Instructions: Pharyngitis (ED) Additional Instructions: Take the antibiotic twice daily for 7 days Use ibuprofen as needed for pain Follow-up with your primary doctor Return for new or worsening symptoms Prescriptions: New amoxicillin-pot clavulanate 875-125 mg tablet 1 tab PO Q12H Qty: 14 0RF No Action (DME) CPAP Device See Rx Instructions .Route Qty: 1 0RF Rx Instructions: 16 cmH2O buspirone 10 mg tablet 10 mg PO TID 30 Days Qty: 90 1RF omeprazole 20 mg capsule,delayed release(DR/EC) 20 mg PO DAILY Qty: 30 3RF tramadol 50 mg tablet 50 mg PO Q8H PRN (Reason: pain) 30 Days Qty: 90 0RF metformin 500 mg tablet 500 mg PO BID 90 Days Qty: 180 1RF atorvastatin 20 mg tablet 20 mg PO BEDTIME 90 Days Qty: 90 1RF cholecalciferol (vitamin D3) 50 mcg (2,000 unit) capsule 50 mcg PO DAILY fluticasone propionate [Flonase Allergy Relief] 50 mcg/actuation spray,suspension 1 spray intranasal DAILY 30 Days Qty: 16 3RF Rx Instructions: administer into each nostril lisinopril 2.5 mg tablet 2.5 mg PO DAILY Qty: 30 3RF
[2023-07-03 18:24] LABS: IDNOW Serial# 08D9AD1C; Strep A Nucleic Acid Negative (Negative)
[2023-07-03 18:29] LABS: COVID-19 Test Negative (Negative); IDNOW Serial# 58CA691E
[2023-07-03 19:27] LABS: IDNOW Serial# 08D9AD1C; Influenza A Negative (Negative); Influenza B2 Negative (Negative)
== END 2023-07-03 20:39 | disposition home or self-care (01) ==
PROVIDERS: Physician Assistant Medical; Emergency Provider Emergency Medicine; PCP Internal Medicine
DX: J02.8 Acute pharyngitis due to other specified organisms (principal); Z11.52 Encounter for screening for COVID-19; Z87.891 Personal history of nicotine dependence
CPT/HCPCS: 71046; 87502; 87635; 87651; 99282; 99283

== ENCOUNTER 2023-07-05 10:42 | Outpatient (AMB) | payer BC, OTHER, SELFPAY ==
--- NOTE | 2023-07-05 10:43 | A.OFFPC_ITS ---
Vital Signs 07/05/23 10:44 Height 5 ft 9 in Weight 267 lb 2 oz BMI 39.4 BP 126/88 Blood Pressure Location Lt brachial Position Sitting Pulse 78 Pulse Source Palpation Intake Visit Reasons: L knee pain Intake Note: The patient is present for left knee discomfort resulting from a work-related injury. Additionally, the patient was examined at the [facility] for URI and Pharyngitis on 07/03/23. Watch Repair Person Required: Yes Watch Repair Person Language: Macedonian Accompanied by: Self / Same As Patient Allergies acetaminophen [From TYLENOL] Allergy (Unknown, Verified 07/05/23 10:52) HX LIVER FAILURE? Medication List - Last Reconciled 07/05/23 by Bismark Cheema PA-C amoxicillin-pot clavulanate 875-125 mg 1 tab PO Q12H atorvastatin 20 mg PO BEDTIME 90 days buspirone 10 mg PO TID 30 days cholecalciferol (vitamin D3) 50 mcg PO DAILY CPAP 16 cmH2O fluticasone propionate 50 mcg/actuation (Flonase Allergy Relief) 1 spray intranasal DAILY 30 days lisinopril 2.5 mg PO DAILY metformin 500 mg PO BID 90 days omeprazole 20 mg PO DAILY tramadol 50 mg PO Q8H PRN 30 days Tobacco use date assessed: 04/27/23 HPI L knee pain HPI Details Patient is a 32-year-old male here today for of work related injury. works at [employer]. Report while at work he an accident (February of 2023) injuring his left knee by slipping in a trailor and felt that he hyperextend. Had been sent for PT though didn't make appt due to fear of more pain. Since his work related excellent he continues to have pain over the anterior aspect of his left knee. [facility] Medical History New onset type 2 diabetes mellitus Elevated BP without diagnosis of hypertension Obesity (BMI 35.0-39.9 without comorbidity) Sciatica of right side associated with disorder of lumbosacral spine Degenerative disc disease at L5-S1 level Surgical History No pertinent past surgical history Family History Father Diabetes Hypertension Anxiety Mother Fibromyalgia Arthritis Other Mental health disorder Social History Housing: House Alcohol intake: former Patient Tobacco Use Status: Former Tobacco user Tobacco use type: Cigarette e-Cigarette/Vaping Use: Currently Using Second Hand Smoke Exposure: No service: No Current occupational status: employed Current occupational exposures/hazards: No Cognitive needs: No Hearing needs: No Vision needs: No Questionnaire Thrive Questionnaire Date Thrive assessed: 12/16/22 JAMES-7 AMB Questionnaire JAMES-7 Date JAMES - 7 assessed: 01/10/23 Source: Developed by Drs. Talon Alvarado, Felisa Payne, Rip Chin and colleagues, with an educational janet from [employer]. Review of Systems Const Denies headache(s) Eyes Denies loss of vision ENT Denies vertigo, Denies dizziness, Denies headache(s) and Denies sore throat Card Denies chest pain, Denies leg edema and Denies lightheadedness Resp Denies cough, Denies hemoptysis and Denies wheezing GI Denies abdominal pain, Denies melena, Denies constipation, Denies diarrhea and Denies vomiting Denies dysuria, Denies urinary frequency and Denies urinary urgency Musc Denies arthralgias, Denies joint swelling, Denies numbness and Denies tingling Neuro Denies Abnormal speech present, Denies behavioral changes, Denies vertigo, Denies dizziness, Denies headache(s), Denies loss of vision, Denies memory loss, Denies numbness and Denies tingling Psych Denies anxiety, Denies behavioral changes, Denies depression, Denies memory loss and Denies panic attacks Tio/Lymph Denies easy bleeding and Denies easy bruising Aller/Immun Denies wheezing Physical exam (Primary Care) Vital Signs: Last Vital Signs Pulse 78 07/05/23 10:44 BP 126/88 07/05/23 10:44 BMI result Body Mass Index 39.4 Tobacco/Smoking Status: Tobacco use Status Tobacco use date assessed 04/27/23 07/05/23 10:48 Patient Tobacco Use Status Former Tobacco user 07/05/23 10:48 Tobacco use type Cigarette 07/05/23 10:48 e-Cigarette/Vaping Use Currently Using 07/05/23 10:48 Thrive Assessment: Date of Thrive Assessment Date Thrive assessed 12/16/22 07/05/23 10:48 Const General: healthy appearing, no acute distress, alert and awake Nutritional Appearance: well nourished Orientation/consciousness: oriented to person, oriented to place and oriented to time HENMT Ears: TM's normal bilaterally General nose exam: Normal nasal mucous membranes and turbinates present Eyes Conjunctivae: conjunctivae normal Sclerae: sclerae normal Pupils: Equal, round and reactive pupils present Neck Neck: Yes no lymphadenopathy and Yes no JVD Thyroid: Thyroid normal Carotids: no bruits Resp Effort & Inspection: normal respiratory effort and not tachypneic Auscultation: no crackles, no rales, no rhonchi and no wheezes Cardio Rate: regular rate Rhythm: regular rhythm Heart sounds: no murmurs and normal S1 and S2 GI Palpation (GI): Soft to palpation, nontender, no hepatomegaly and no splenomegaly Auscultation: normal bowel sounds Skin General skin exam: no rashes or lesions noted and dry skin Neuro General: oriented to person, oriented to place and oriented to time Cranial nerves: Yes Equal, round and reactive pupils present Speech: No Abnormal speech present Gait exam (Neuro): Normal gait present Motor exam (neuro): no tremor noted Extrem Other: LEFT KNEE: HAS FULL RANGE OF MOTION, NO LIGAMENTOUS LAXITY. NO NOTABLE EDEMA OVER LEFT KNEE. SOME TENDERNESS OVER ANTERIOR AND POSTERIOR ASPECT OF THE KNEE. Right upper extremity: full ROM Left upper extremity: full ROM Right lower extremity: full ROM; no edema Left lower extremity: full ROM; no edema Psych Mental Status: mental status grossly normal Speech and movement: Normal speech and movement present Affect: normal affect Attitude: cooperative Thought process: Normal thought process present Assessment and Plan Assessment & Plan (1) Left knee injury: Code(s): S89.92XA - Unspecified injury of left lower leg, initial encounter Qualifiers: Encounter type: initial encounter Qualified Code(s): S89.92XA - Unspecified injury of left lower leg, initial encounter Plan: Patient seems to have a ligamentous injury of his left knee. Physical exam benign without any ligamentous laxity. Will get x-ray, refer to orthopedics and will likely benefit from physical therapy. He is now willing to do physical therapy. Advised on p.r.n. use of NSAID Orders: Orders PT Evaluation and Treatment 12/13/23 S89.92XA - Unspecified injury of left lower leg, initial encounter XR knee LT 3V 07/05/23 S89.92XA - Unspecified injury of left lower leg, initial encounter Referrals Orthopedics Referral S89.92XA - Unspecified injury of left lower leg, initial encounter Medications: New ibuprofen 800 mg PO Q8H 14 days 42 tabs 0RF S89.92XA - Unspecified injury of left lower leg, initial encounter prednisone take 3 tabs x 2 days , take 2 tabs x 2day , take 1 tab x 2days 10 mg PO DIRECTED 6 days 12 tabs 0RF S89.92XA - Unspecified injury of left lower leg, initial encounter Coding Level of Care Code Est Pt Level 3 (10721) Diagnoses Injury of left knee, initial encounter S89.92XA Encounter type: initial encounter
[2023-07-05 10:44] VITALS: BP 126/88; PULSE 78; BMI 39.4
== END 2023-07-05 11:15 | disposition home or self-care (01) ==
PROVIDERS: PCP Internal Medicine; Visit Provider Physician Assistant
DX: S89.92XA Unspecified injury of left lower leg, initial encounter (principal)
CPT/HCPCS: 99213

== ENCOUNTER 2023-08-04 10:28 | Outpatient (REF) | payer OTHER, SELFPAY | END 2023-08-04 10:29 | disposition home or self-care (01) | LOC: HO.HOSX 10:28 | PROVIDERS: Visit Provider Physician Assistant | DX: Z13.89 Encounter for screening for other disorder (principal) ==

== ENCOUNTER 2023-08-31 13:29 | Outpatient (AMB) | payer OTHER, SELFPAY ==
[2023-08-31 13:33] VITALS: BP 140/100; BMI 40.2
--- NOTE | 2023-08-31 13:33 | A.OFFPC_ITS ---
Vital Signs 08/31/23 13:33 08/31/23 14:27 Height 5 ft 9 in Weight 272 lb BMI 40.2 BP 140/100 H 140/100 H Blood Pressure Location Lt brachial Lt brachial Position Sitting Sitting Intake Visit Reasons: 3 month f/u Intake Note: Patient here for a 3 month follow up Supervisor Tan Room Required: No Accompanied by: Self / Same As Patient Allergies acetaminophen [From TYLENOL] Allergy (Unknown, Verified 08/31/23 13:41) HX LIVER FAILURE? Medication List - Last Reconciled 08/31/23 by Ginger Helms MD atorvastatin 20 mg PO BEDTIME 90 days buspirone 10 mg PO TID 30 days cholecalciferol (vitamin D3) 50 mcg PO DAILY CPAP 16 cmH2O fluticasone propionate 50 mcg/actuation (Flonase Allergy Relief) 1 spray intranasal DAILY 30 days ibuprofen 800 mg PO Q8H 14 days lisinopril 2.5 mg PO DAILY metformin 500 mg PO BID 90 days omeprazole 20 mg PO DAILY tramadol 50 mg PO Q8H PRN 30 days Tobacco use date assessed: 08/31/23 Dental Screening Dental Screen Date: 08/31/23 Did you have a dental visit in the last 12 months?: No Did you have a dental problem in the last 6 months where you did not have access to dental care?: No Was dental information given to patient?: Patient has dentist HPI HPI Comments History of Present Illness Details This is a 32-year-old male with hypertension, major depression, diabetes mellitus type 2, morbid obesity and GERD that comes today for follow-up on his conditions. Blood pressure is borderline elevated and I will increase lisinopril from 2.5 mg to 5 mg. Depression is in remission. A1c within goal. He is morbidly obese with a BMI of 40.2 [facility] GERD stable with PPIs. Last diabetic eye exam was over 2 years ago. [facility] Medical History (Updated 08/31/23 @ 14:35 by Ginger Helms MD) New onset type 2 diabetes mellitus Elevated BP without diagnosis of hypertension Obesity (BMI 35.0-39.9 without comorbidity) Sciatica of right side associated with disorder of lumbosacral spine Degenerative disc disease at L5-S1 level Surgical History No pertinent past surgical history Family History Father Diabetes Hypertension Anxiety Mother Fibromyalgia Arthritis Other Mental health disorder Social History Housing: House Alcohol intake: former Patient Tobacco Use Status: Former Tobacco user Tobacco use type: Cigarette e-Cigarette/Vaping Use: Currently Using Second Hand Smoke Exposure: No service: No Current occupational status: unemployed Cognitive needs: No Hearing needs: No Vision needs: No Questionnaire PHQ-9 Over the last 2 weeks, how often have you been bothered by any of the following problems? 1. Little interest or pleasure in doing things: not at all 2. Feeling down, depressed, or hopeless: several days 3. Trouble falling or staying asleep, or sleeping too much: not at all 4. Feeling tired or having little energy: several days 5. Poor appetite or overeating: not at all 6. Feeling bad about yourself - or that you are a failure or have let yourself or your family down: not at all 7. Trouble concentrating on things, such as reading the newspaper or watching television: not at all 8. Moving or speaking so slowly that other people could have noticed. Or the opposite - being so fidgety or restless that you have been moving around a lot more than usual: several days 9. Thoughts that you would be better off or of hurting yourself in some way: not at all Total score: 3 Depression Screening Interpretation: Negative Depression Screening Done: Yes 85612 - PHQ-9 Billing: Yes Source: Developed by Drs. Talon Alvarado, Felisa Payne, Rip Chin and colleagues, with an educational janet from [employer]. Thrive Questionnaire Date Thrive assessed: 08/31/23 I am a: Patient What is your living situation today?: I have a steady place to live Within the past 12 months, did the food you bought not last and you didn't have the money to get more?: Never true Within the past 12 months, did you worry whether your food would run out before you got money to buy more?: Never true Do you have trouble paying for medicines?: No Do you have trouble getting transportation to medical appointments?: No Do you have trouble paying your heating and electricity bill?: No Do you have trouble taking care of your child, family member or friend?: No Do you have trouble with day-to-day activities such as bathing, preparing meals, shopping, managing finances, etc.?: No Are you currently unemployed and looking for a job?: No Are you interested in more education?: No Please select the resources that you would like help with: None Currently or been in a relationship where the following occur: no concerns reported THRIVE Score: 0 AUDIT C Alcohol Use Questionnaire (AUDIT-C) 1. How often do you have a drink containing alcohol?: Never Total Score: 0 JAMES-7 AMB Questionnaire JAMES-7 Date JAMES - 7 assessed: 08/31/23 Feeling nervous, anxious, or on edge: 2 = More than half the days Not being able to stop or control worryin = Several days Worrying too much about different things: 3 = Nearly every day Trouble relaxin = Several days Being so restless that it is hard to sit still: 0 = Not at all Becoming easily annoyed or irritable: 1 = Several days Feeling afraid as if something awful might happen: 2 = More than half the days Total JAMES-7 score (0-4 normal; 5-9 mild; 10-14 moderate; 15-21 severe): 10 Source: Developed by Drs. Talon Alvarado, Felisa Payne, Rip Chin and colleagues, with an educational janet from [employer]. JAMES-7 Assessment Billing JAMES-7 Assessment Tool: JAMES-7 Assessment 93872 Review of Systems Const All systems reviewed & are unremarkable except as noted in HPI and below Eyes Reports no additional complaints, Denies change in vision and Denies other visual disturbances Card Denies chest pain at rest, Denies chest pain with activity, Denies edema, Denies irregular heart rhythm, Denies claudication, Denies dyspnea, Denies dyspnea on exertion, Denies orthopnea, Denies paroxysmal nocturnal dyspnea and Denies slow heart rate Resp Denies cough, Denies dyspnea and Denies dyspnea on exertion GI Denies abdominal pain, Denies change in bowel habits, Denies excessive flatus, Denies nausea and Denies vomiting Denies urinary hesitancy, Denies urinary incontinence and Denies urinary urgency Musc Denies abnormal gait, Denies atrophy, Denies deformity and Denies limited range of motion Skin/Breast Denies bleeding lesions, Denies changing lesions and Denies rash Neuro Denies abnormal gait, Denies behavioral changes and Denies lack of coordination Psych Denies behavioral changes Physical exam (Primary Care) Vital Signs: Last Vital Signs BP 140/100 H 08/31/23 13:33 BMI result Body Mass Index 40.2 Tobacco/Smoking Status: Tobacco use Status Tobacco use date assessed 08/31/23 08/31/23 13:39 Patient Tobacco Use Status Former Tobacco user 08/31/23 13:39 Tobacco use type Cigarette 08/31/23 13:39 e-Cigarette/Vaping Use Currently Using 08/31/23 13:39 PHQ-9: PHQ-9 Score PHQ-9: Total score 3 08/31/23 13:47 Depression Screening Interpretation: Negative Thrive Assessment: Date of Thrive Assessment Date Thrive assessed 08/31/23 08/31/23 13:39 Currently or been in a relationship where the following occur: no concerns reported Eyes General: appearance normal, both eyes and all related structures Eyelids: Yes eyelids normal Conjunctivae: conjunctivae normal Neck Neck: Yes normal visual inspection and Yes supple Resp Effort & Inspection: normal respiratory effort Auscultation: clear to auscultation bilaterally Cardio Jugular venous distension: no JVD Rate: regular rate Rhythm: regular rhythm Heart sounds: S1 normal heart sound present and S2 normal heart sound present Extrem General: Yes full ROM Results AMB Hemoglobin A1c AMB Hemoglobin A1c 5.8 % Last Edit by OSVALDO Ram on 08/31/23 14:0 8 Results Reviewed Results Reviewed: Laboratory Last Values Hgb A1c (Clinic) 5.8 % (4.0-6.0) 08/31/23 13:50 Assessment and Plan Assessment & Plan (1) Mild major depression: Code(s): F32.0 - Major depressive disorder, single episode, mild Plan: In remission. (2) Morbid obesity with BMI of 40.0-44.9, adult: Code(s): E66.01 - Morbid (severe) obesity due to excess calories; Z68.41 - Body mass index [BMI] 40.0-44.9, adult Plan: Referred to weight management for weight loss. BMI goal is less than 30. (3) Diabetes mellitus: Code(s): E11.9 - Type 2 diabetes mellitus without complications Qualifiers: Diabetes mellitus type: type 2 Diabetes mellitus intermediate manager insulin use: without intermediate manager use Diabetes mellitus complication status: without complication Qualified Code(s): E11.9 - Type 2 diabetes mellitus without complications Plan: Continue metformin. A1c goal is equal or less than 7%. (4) GERD (gastroesophageal reflux disease): Code(s): K21.9 - Gastro-esophageal reflux disease without esophagitis Qualifiers: Esophagitis presence: esophagitis presence not specified Qualified Code(s): K21.9 - Gastro-esophageal reflux disease without esophagitis Plan: Continue PPIs. (5) Hypertension: Code(s): I10 - Essential (primary) hypertension Qualifiers: Hypertension type: primary hypertension Qualified Code(s): I10 - Essential (primary) hypertension Plan: Increase lisinopril from 2.5 mg to 5 mg. Blood pressure goal is equal or less than 130/80. Orders: Orders ECG 12 lead EKG Today R07.9 - Chest pain, unspecified AMB Hemoglobin A1c Today E11.9 - Type 2 diabetes mellitus without complications Lipid Panel Today E78.5 - Hyperlipidemia, unspecified Microalbumin, Random (w Creat) Today E11.9 - Type 2 diabetes mellitus without complications Comprehensive [place]. Panel Fast Today I10 - Essential (primary) hypertension Referrals Ophthalmology Referral E11.9 - Type 2 diabetes mellitus without complications Medical Weight Management Referral E66.01 - Morbid (severe) obesity due to excess calories, Z68.41 - Body mass index [BMI] 40.0-44.9, adult Medications: New lisinopril 5 mg PO DAILY 90 days 90 tabs 0RF Discontinued lisinopril Discontinued Reason: Patient Completed Course 2.5 mg PO DAILY 30 tabs 3RF I10 - Essential (primary) hypertension Coding Level of Care Code Est Pt Level 4 (38207) Diagnoses Mild major depression F32.0 Morbid obesity with BMI of 40.0-44.9, adult E66.01; Z68.41 Type 2 diabetes mellitus without complication, without long-term current use of insulin E11.9 Diabetes mellitus type: type 2 Diabetes mellitus [facility] insulin use: without [facility] use Diabetes mellitus complication status: without complication Gastroesophageal reflux disease, unspecified whether esophagitis present K21.9 Esophagitis presence: esophagitis presence not specified Primary hypertension I10 Hypertension type: primary hypertension Additional Codes JAMES-7 Assessment Billing - JAMES-7 Assessment Tool: JAMES-7 Assessment 19679 ([id number]) Time Spent (min) 24
[2023-08-31 14:27] VITALS: BP 140/100
== END 2023-08-31 13:55 | disposition home or self-care (01) ==
PROVIDERS: PCP Internal Medicine; Visit Provider Internal Medicine
DX: E11.9 Type 2 diabetes mellitus without complications (principal); F32.0 Major depressive disorder, single episode, mild; E66.01 Morbid (severe) obesity due to excess calories; Z68.41 Body mass index [BMI] 40.0-44.9, adult; K21.9 Gastro-esophageal reflux disease without esophagitis; I10 Essential (primary) hypertension
CPT/HCPCS: 83036; 99214

== ENCOUNTER 2024-01-18 13:09 | Outpatient (AMB) | payer OTHER, SELFPAY ==
[2024-01-18 13:16] VITALS: BP 122/80; BMI 39.3
--- NOTE | 2024-01-18 13:16 | A.OFFPC_ITS ---
Vital Signs 01/18/24 13:16 Height 5 ft 9 in Weight 266 lb BMI 39.3 BP 122/80 Blood Pressure Location Lt brachial Position Sitting Intake Visit Reasons: PE Intake Note: Patient here for a physical exam Supervisor Cook House Required: No Accompanied by: Self / Same As Patient Allergies acetaminophen [From TYLENOL] Allergy (Unknown, Verified 01/18/24 13:34) HX LIVER FAILURE? Medication List - Last Reconciled 01/18/24 by Ginger Helms MD atorvastatin 20 mg PO BEDTIME 90 days buspirone 10 mg PO TID 30 days cholecalciferol (vitamin D3) 50 mcg PO DAILY 90 days CPAP 16 cmH2O fluticasone propionate 50 mcg/actuation (Flonase Allergy Relief) 1 spray intranasal DAILY 30 days lisinopril 5 mg PO DAILY 90 days omeprazole 20 mg PO DAILY tramadol 50 mg PO Q8H PRN 30 days Tobacco use date assessed: 08/31/23 Dental Screening Dental Screen Date: 08/31/23 HPI HPI Comments History of Present Illness Details This is a 33-year-old male with diabetes mellitus type 2 mild major depression in remission that comes for his physical exam. A1c within goal and has been not taking medications for over a month. Depression is in remission. No chest pain or shortness on breath. He has obese with a BMI of 39.3 and is doing diet and exercise. I will start him on Wegovy. [facility] Medical History (Updated 01/18/24 @ 14:20 by Ginger Helms MD) Morbid obesity with BMI of 40.0-44.9, adult New onset type 2 diabetes mellitus Elevated BP without diagnosis of hypertension Obesity (BMI 35.0-39.9 without comorbidity) Sciatica of right side associated with disorder of lumbosacral spine Degenerative disc disease at L5-S1 level Surgical History No pertinent past surgical history Family History Father Diabetes Hypertension Anxiety Mother Fibromyalgia Arthritis Other Mental health disorder Social History Housing: House Alcohol intake: former Patient Tobacco Use Status: Former Tobacco user Tobacco use type: Cigarette e-Cigarette/Vaping Use: Currently Using Second Hand Smoke Exposure: No service: No Current occupational status: unemployed Current occupational exposures/hazards: No Cognitive needs: No Hearing needs: No Vision needs: No Questionnaire Thrive Questionnaire Date Thrive assessed: 08/31/23 JAMES-7 AMB Questionnaire JAMES-7 Date JAMES - 7 assessed: 08/31/23 Source: Developed by Drs. Talon Alvarado, Felisa Payne, Rip Chin and colleagues, with an educational janet from [employer]. Review of Systems Const All systems reviewed & are unremarkable except as noted in HPI and below Card Denies chest pain at rest, Denies chest pain with activity, Denies edema, Denies irregular heart rhythm, Denies claudication, Denies dyspnea, Denies dyspnea on exertion, Denies orthopnea, Denies paroxysmal nocturnal dyspnea and Denies slow heart rate Resp Denies cough, Denies dyspnea and Denies dyspnea on exertion GI Denies abdominal pain, Denies change in bowel habits, Denies excessive flatus, Denies nausea and Denies vomiting Denies urinary hesitancy, Denies urinary incontinence and Denies urinary urgency Musc Denies atrophy, Denies deformity and Denies limited range of motion Physical exam (Primary Care) Vital Signs: Last Vital Signs BP 122/80 01/18/24 13:16 BMI result Body Mass Index 39.3 BMI Assessment/Plan discussion: High BMI High, discussed plan: lifestyle, weight reduction, dietary and physical activity Tobacco/Smoking Status: Tobacco use Status Tobacco use date assessed 08/31/23 01/18/24 13:23 Patient Tobacco Use Status Former Tobacco user 01/18/24 13:23 Tobacco use type Cigarette 01/18/24 13:23 e-Cigarette/Vaping Use Currently Using 01/18/24 13:23 Thrive Assessment: Date of Thrive Assessment Date Thrive assessed 08/31/23 01/18/24 13:23 HENMT Head: Yes normal to inspection, Yes normocephalic and Yes atraumatic Ears: external ears normal Eyes General: appearance normal, both eyes and all related structures Eyelids: Yes eyelids normal Conjunctivae: conjunctivae normal Neck Neck: Yes normal visual inspection and Yes supple Resp Effort & Inspection: normal respiratory effort Auscultation: clear to auscultation bilaterally Cardio Jugular venous distension: no JVD Rate: regular rate Rhythm: regular rhythm Heart sounds: S1 normal heart sound present and S2 normal heart sound present GI Inspection: Yes normal to inspection Palpation (GI): Soft to palpation and nontender Auscultation: normal bowel sounds Skin General skin exam: no rashes or lesions noted Neuro General: no focal motor deficits Extrem General: Yes full ROM Psych Appearance: grossly normal Results AMB Hemoglobin A1c AMB Hemoglobin A1c 5.8 % Last Edit by OSVALDO Ram on 01/18/24 13:4 7 Results Reviewed Results Reviewed: Laboratory Last Values Hgb A1c (Clinic) 5.8 % (4.0-6.0) 01/18/24 13:24 Assessment and Plan Assessment & Plan (1) Physical exam: Code(s): Z00.00 - Encounter for general adult medical examination without abnormal findings Plan: Repeat in a year. (2) Mild major depression: Code(s): F32.0 - Major depressive disorder, single episode, mild Plan: In remission. (3) Diabetes mellitus: Code(s): E11.9 - Type 2 diabetes mellitus without complications Qualifiers: Diabetes mellitus type: type 2 Diabetes mellitus [facility] insulin use: without middle or intermediate school principal use Diabetes mellitus complication status: without complication Qualified Code(s): E11.9 - Type 2 diabetes mellitus without complications Plan: Continue diet and exercise. Keep A1c less than 7%. Orders: Orders Lipid Panel Today E78.5 - Hyperlipidemia, unspecified Comprehensive [place]. Panel Fast Today I10 - Essential (primary) hypertension AMB Hemoglobin A1c Today E11.9 - Type 2 diabetes mellitus without complications Vitamin D 25-OH Total Today E55.9 - Vitamin D deficiency, unspecified Medications: New semaglutide (weight loss) (Wegovy) administer weeks 1 through 4 of therapy 0.25 mg (0.5 mL) subcut QWEEK 2 mL 0RF 4 weeks E66.9 - Obesity, unspecified Refilled fluticasone propionate 50 mcg/actuation (Flonase Allergy Relief) administer into each nostril 1 spray intranasal DAILY 16 grams 3RF 30 days Coding Level of Care Code Est Pt Prev Care 18-39y(21198) Diagnoses Physical exam Z00.00 Mild major depression F32.0 Type 2 diabetes mellitus without complication, without long-term current use of insulin E11.9 Diabetes mellitus type: type 2 Diabetes mellitus middle or intermediate school principal insulin use: without [facility] use Diabetes mellitus complication status: without complication Time Spent (min) 30
== END 2024-01-18 13:41 | disposition home or self-care (01) ==
PROVIDERS: PCP Internal Medicine; Visit Provider Internal Medicine
DX: Z00.00 Encounter for general adult medical examination without abnormal findings (principal); F32.0 Major depressive disorder, single episode, mild; E11.9 Type 2 diabetes mellitus without complications
CPT/HCPCS: 83036; 99395

== ENCOUNTER 2024-07-06 09:51 | Outpatient (AMB) | payer OTHER, SELFPAY ==
[2024-07-06 09:54] VITALS: BP 130/80; PULSE 84; TEMP 36.6; O2SAT 98; BMI 39.3
--- NOTE | 2024-07-06 09:54 | MHC.OFFWIV ---
Intake Vital Signs 07/06/24 09:54 Height 5 ft 9 in Weight 266 lb BMI 39.3 BP 130/80 Blood Pressure Location Rt brachial Position Sitting Pulse 84 Pulse Source Pulse Oximeter Temp 97.8 F Temp Source Oral Pulse Oximetry (%) 98 Intake Visit Reasons: EP Lower back pain/affecting legs~ NOT WC Patient Tobacco Use Status: Former Tobacco user Allergies acetaminophen [From TYLENOL] Allergy (Unknown, Verified 07/06/24 09:54) HX LIVER FAILURE? Do you need a note to return to daycare/school/sports/work: No HPI HPI Comments History of Present Illness Details He presents to office with back pain 2 weeks ago he was shopping with and picked up a case of water and twisted Immediate sharp pain on both sides Pain radiation down legs No loss of bowel or bladder function He works overnight and has difficulty sleeping due to pain He has tried ibuprofen without relief Pain level now is 8/10 Worse with laying and movement No abdominal pain Some tingling in R leg but no numbness or weakness He has hx of back issues in past and unable to get in with PCP so decided to come to [facility] Medical History (Updated 07/06/24 @ 10:22 by Vernell Michelle PA-C) Morbid obesity with BMI of 40.0-44.9, adult New onset type 2 diabetes mellitus Elevated BP without diagnosis of hypertension Obesity (BMI 35.0-39.9 without comorbidity) Sciatica of right side associated with disorder of lumbosacral spine Degenerative disc disease at L5-S1 level Surgical History No pertinent past surgical history Family History Father Diabetes Hypertension Anxiety Mother Fibromyalgia Arthritis Other Mental health disorder Social History Housing: House Alcohol intake: former Patient Tobacco Use Status: Former Tobacco user Tobacco use type: Cigarette e-Cigarette/Vaping Use: Currently Using Second Hand Smoke Exposure: No service: No Current occupational status: unemployed Current occupational exposures/hazards: No Cognitive needs: No Hearing needs: No Vision needs: No Review of Systems Const Denies chills, Denies fatigue, Denies fever(s) and Denies frequent falls Card Denies chest pain and Denies dyspnea Resp Denies dyspnea GI Denies abdominal pain and Denies other (denies issues with urination or bowel movements) Musc Reports back pain, Reports stiffness and Denies tingling Skin/Breast Denies erythema Neuro Denies frequent falls, Denies lack of coordination and Denies tingling Endo Denies fatigue Physical Exam Vital Signs: Last Vital Signs Temp 97.8 F 07/06/24 09:54 Pulse 84 07/06/24 09:54 BP 130/80 07/06/24 09:54 Pulse Ox 98 07/06/24 09:54 BMI result Body Mass Index 39.3 General: Non-toxic, NAD. Speaking full sentences. Skin: Warm dry throughout Eye: EOMI Respiratory: CTA bilaterally. No wheezes, rales or rhonchi Cardiac: RRR. No murmur MSK: Pt has slight tenderness to bilateral trapezius muscles bilaterally. Minimal Lumbar midline and R >L paraspinous tenderness to palpation. No midline cervical or thoracic tenderness. 5/5 strength dorsal flexion great toe bilaterally. No wincing with SLR bilaterally. Gait stable without limp. Neurology: A/O. No aphasia or facial droop Psych: Good mood and affect Assessment & Plan Assessment & Plan (1) Lumbar back pain: Code(s): M54.50 - Low back pain, unspecified Plan: Pt seen and evaluated Xray lumbar: i viewed as wnl. Robaxin at night; + letharfy, no alcohol or driving Ibuprofen prn during day FU with PCP Pt had no additional questions at time of d/c Orders: Orders XR lumbar spine 2-3V Today M54.50 - Low back pain, unspecified Medications: New methocarbamol 500 mg PO BEDTIME 10 tabs 0RF Coding Level of Care Code Est Pt Level 3 (33855) Diagnoses Lumbar back pain M54.50
== END 2024-07-06 12:07 | disposition home or self-care (01) ==
PROVIDERS: PCP Internal Medicine; Visit Provider Physician Assistant
DX: M54.50 Low back pain, unspecified (principal)

== ENCOUNTER 2024-07-06 10:23 | Outpatient (REF) | payer OTHER, SELFPAY ==
--- NOTE | ~2024-07-06 | XR_ITS ---
EXAMINATION: XR LUMBOSACRAL SPINE CLINICAL INFORMATION: M54.50 - Low back pain, unspecified COMPARISON: February 18, 2019 TECHNIQUE: Three views of the lumbosacral spine. FINDINGS: The lumbar vertebral body heights and disc space heights are preserved. Alignment maintained. XR/XR lumbar spine 2-3V IMPRESSION: Unremarkable exam. This study was presented today to July 08, 2024 for interpretation. Stat results provided at this time as requested by referring provider. Electronically signed by: Ayanna Enciso MD 07/08/2024 09:11 AM MEGHAN LOREDO
== END 2024-07-06 10:24 | disposition home or self-care (01) ==
LOC: HO.HMGCX 10:23
PROVIDERS: PCP Internal Medicine; Visit Provider Physician Assistant
DX: M54.50 Low back pain, unspecified (principal)
CPT/HCPCS: 72100; 99212

== ENCOUNTER 2024-07-15 07:32 | Outpatient (AMB) | payer OTHER, SELFPAY ==
--- NOTE | 2024-07-15 07:39 | A.OFFPC_ITS ---
Vital Signs 07/15/24 07:40 Height 5 ft 9 in Weight 268 lb BMI 39.6 BP 126/80 Blood Pressure Location Lt brachial Position Sitting Intake Visit Reasons: back pain Intake Note: Patient here for back pain Director Marketing Communications Required: No Accompanied by: Self / Same As Patient Allergies acetaminophen [From TYLENOL] Allergy (Unknown, Verified 07/15/24 07:55) HX LIVER FAILURE? Medication List - Last Reconciled 07/15/24 by Ginger Helms MD atorvastatin 20 mg PO BEDTIME 90 days buspirone 10 mg PO TID 30 days cholecalciferol (vitamin D3) 50 mcg PO DAILY 90 days CPAP 16 cmH2O fluticasone propionate 50 mcg/actuation (Flonase Allergy Relief) 1 spray intranasal DAILY 30 days lisinopril 5 mg PO DAILY 90 days methocarbamol 500 mg PO BEDTIME omeprazole 20 mg PO DAILY pantoprazole 40 mg PO DAILY 90 days semaglutide (weight loss) (Wegovy) 0.25 mg (0.5 mL) subcut QWEEK 4 weeks tramadol 50 mg PO Q8H PRN 7 days Tobacco use date assessed: 08/31/23 Dental Screening Dental Screen Date: 07/15/24 Did you have a dental visit in the last 12 months?: No Did you have a dental problem in the last 6 months where you did not have access to dental care?: No Was dental information given to patient?: Patient has dentist HPI HPI Comments History of Present Illness Details The patient is a 33-year-old male presenting with lumbar strain. The patient reported that he first noticed a sensation of pressure in his lumbar are a, which he speculated might be related to the column or spine. This sensation developed into a more pronounced strain after continuing to work normally for two weeks post-onset. The patient describes feeling that the condition worsened over this period. Measures were taken to adjust his work duties, and physical activity was limited to avoid exacerbation. The patient expressed a need for work restrictions, particularly avoiding lifting more than 10 pounds. There is no history of acute or dislocative imaging findings. The patient has previously sought urgent care, and imaging was deemed unremarkable for acute damage. In the context of his history, co-existence of obesity with a BMI nearing morbid limits, hypertension, hypercholesterolemia, and sleep apnea are noted, with ongoing management of these conditions involving lisinopril, atorvastatin, and pantoprazole. Weight-related management discussions included a strategy involving potential medication due to plan constraints on Ozempic. [facility] Medical History (Updated 07/15/24 @ 09:37 by Ginger Helms MD) Morbid obesity with BMI of 40.0-44.9, adult New onset type 2 diabetes mellitus Elevated BP without diagnosis of hypertension Obesity (BMI 35.0-39.9 without comorbidity) Sciatica of right side associated with disorder of lumbosacral spine Degenerative disc disease at L5-S1 level Surgical History No pertinent past surgical history Family History Father Diabetes Hypertension Anxiety Mother Fibromyalgia Arthritis Other Mental health disorder Social History Housing: House Alcohol intake: former Patient Tobacco Use Status: Former Tobacco user Tobacco use type: Cigarette e-Cigarette/Vaping Use: Currently Using Second Hand Smoke Exposure: No service: No Current occupational status: unemployed Current occupational exposures/hazards: No Cognitive needs: No Hearing needs: No Vision needs: No Questionnaire Thrive Questionnaire Date Thrive assessed: 08/31/23 JAMES-7 AMB Questionnaire JAMES-7 Date JAMES - 7 assessed: 08/31/23 Source: Developed by Drs. Talon Alvarado, Felisa Payne, Rip Chin and colleagues, with an educational janet from [employer]. Review of Systems Const All systems reviewed & are unremarkable except as noted in HPI and below Card Denies chest pain at rest, Denies chest pain with activity, Denies edema, Denies irregular heart rhythm, Denies claudication, Denies dyspnea, Denies dyspnea on exertion, Denies orthopnea, Denies paroxysmal nocturnal dyspnea and Denies slow heart rate Resp Denies cough, Denies dyspnea and Denies dyspnea on exertion Musc Denies abnormal gait, Reports back pain, Denies atrophy, Denies deformity, Denies limited range of motion and Reports radiating pain into limb Skin/Breast Denies bleeding lesions, Denies changing lesions and Denies rash Neuro Denies abnormal gait, Denies behavioral changes and Denies lack of coordination Psych Denies behavioral changes Physical exam (Primary Care) Vital Signs: Last Vital Signs BP 126/80 07/15/24 07:40 BMI result Body Mass Index 39.6 BMI Assessment/Plan discussion: High BMI High, discussed plan: lifestyle, weight reduction, dietary and physical activity Tobacco/Smoking Status: Tobacco use Status Tobacco use date assessed 08/31/23 07/15/24 07:43 Patient Tobacco Use Status Former Tobacco user 07/15/24 07:43 Tobacco use type Cigarette 07/15/24 07:43 e-Cigarette/Vaping Use Currently Using 07/15/24 07:43 Thrive Assessment: Date of Thrive Assessment Date Thrive assessed 08/31/23 07/15/24 07:43 Resp Effort & Inspection: normal respiratory effort Auscultation: clear to auscultation bilaterally Cardio Jugular venous distension: no JVD Rate: regular rate Rhythm: regular rhythm Heart sounds: S1 normal heart sound present and S2 normal heart sound present Back/Spine/Pelvis Thoracic/Lumbar Spine: straight leg raise positive bilateral Extrem General: Yes full ROM Psych Appearance: grossly normal Office Procedures Flu Questionnaire Does the patient have a severe egg allergy?: No Immunizations Fluarix Triv [id number] (PF) 45 mcg (15 mcg x 3)/0.5 mL IM syringe Performing Provider: Ginger Helms MD [facility] [place] [facility] Documented (not given) by: OSVALDO Ram on 07/15/24 07:48 Reason Not Given: Patient Refused Coding Level of Care Code Est Pt Level 4 (46885) Complex EM visit Add On G2211 Diagnoses Lumbar back pain M54.50 Obesity, Class II, BMI 35-39.9 E66.9 Primary hypertension I10 Hypertension type: primary hypertension ALEXANDR (obstructive sleep apnea) G47.33 Gastroesophageal reflux disease, unspecified whether esophagitis present K21.9 Esophagitis presence: esophagitis presence not specified Pure hypercholesterolemia E78.00 Hyperlipidemia type: pure hypercholesterolemia Anxiety F41.9 Mild major depression F32.0 Time Spent (min) 23 Assessment & Plan Assessment & Plan (1) Lumbar back pain: Code(s): M54.50 - Low back pain, unspecified Category: Medical (2) Obesity, Class II, BMI 35-39.9: Code(s): E66.9 - Obesity, unspecified Category: Medical (3) Hypertension: Code(s): I10 - Essential (primary) hypertension Category: Medical Qualifiers: Hypertension type: primary hypertension Qualified Code(s): I10 - Essential (primary) hypertension (4) ALEXANDR (obstructive sleep apnea): Comment: Severe degree of sleep apnea. The AHI was 71/hr and the oxygen kosta was 48%. Code(s): G47.33 - Obstructive sleep apnea (adult) (pediatric) Category: Medical (5) GERD (gastroesophageal reflux disease): Code(s): K21.9 - Gastro-esophageal reflux disease without esophagitis Category: Medical Qualifiers: Esophagitis presence: esophagitis presence not specified Qualified Code(s): K21.9 - Gastro-esophageal reflux disease without esophagitis (6) Hyperlipidemia: Code(s): E78.5 - Hyperlipidemia, unspecified Category: Medical Qualifiers: Hyperlipidemia type: pure hypercholesterolemia Qualified Code(s): E78.00 - Pure hypercholesterolemia, unspecified (7) Anxiety: Code(s): F41.9 - Anxiety disorder, unspecified Category: Medical (8) Mild major depression: Code(s): F32.0 - Major depressive disorder, single episode, mild Category: Medical Plan - Initiate a six-week course of physical therapy for lumbar strain. - Continue current hypertension and hypercholesterolemia management with lisinopril and atorvastatin respectively. - Monitor cholesterol levels due to atorvastatin use. - Maintain gastroesophageal reflux disease management with pantoprazole. - Address weight with potential pharmaceutical intervention due to plan constraints on Ozempic. - Consideration for MRI if no improvement in symptoms after six weeks. - Prescribe cyclobenzaprine for lumbar pain management. Patient was informed and verbally consented to the use of an ambient scribe for clinic note documentation during this visit. During the visit, I discussed with the patient the ongoing lumbar strain, emphasizing conservative management with physical therapy for six weeks as a primary approach. Options for pharmacological support for his obesity were explored, considering existing plan restrictions. The patient understands the impacts of lumbar strain on his occupational responsibilities and agrees to follow the recommended work restrictions. We reviewed the current medication regimen, including continuation of existing treatments for hypertension, cholesterol, and reflux symptoms. The patient has been informed about the potential need for further imaging if pain persists, with a possible referral to physical therapy as a proactive measure. Risks and benefits of cyclobenzaprine for assisting with sleep disturbances were discussed. Orders: Orders Influenza [id number] Immunization Today Z23 - Encounter for immunization Lipid Panel Today E78.5 - Hyperlipidemia, unspecified Vitamin D 25-OH Total Today E55.9 - Vitamin D deficiency, unspecified PT Evaluation and Treatment Today M54.50 - Low back pain, unspecified Comprehensive [place]. Panel Fast Today M54.50 - Low back pain, unspecified Referrals Pain Management Referral M54.50 - Low back pain, unspecified Medications: New cyclobenzaprine 10 mg PO BEDTIME PRN 7 tabs 0RF muscle spasm 7 days tirzepatide (weight loss) (Zepbound) for 4 weeks 2.5 mg (0.5 mL) subcut QWEEK 2 mL 0RF 4 weeks E66.9 - Obesity, unspecified Refilled tramadol 50 mg PO Q8H PRN 21 tabs 0RF pain 7 days M51.37 - Other intervertebral disc degeneration, lumbosacral region Discontinued omeprazole Discontinued Reason: Patient Completed Course 20 mg PO DAILY 30 caps 3RF K21.9 - Gastro-esophageal reflux disease without esophagitis semaglutide (weight loss) (Wegovy) administer weeks 1 through 4 of therapy Discontinued Reason: Patient Completed Course 0.25 mg (0.5 mL) subcut QWEEK 4 weeks 2 mL 0RF E66.9 - Obesity, unspecified methocarbamol Discontinued Reason: Patient Completed Course 500 mg PO BEDTIME 10 tabs 0RF Patient Instructions: - Commence six-week physical therapy program. - Adhere to work restrictions, avoiding heavy lifting over 10 pounds. - Continue taking prescribed medications: lisinopril, atorvastatin, and pantoprazole. - Monitor symptoms and return if no improvement or worsening of condition. - Follow up for reassessment after completion of the physical therapy regimen.
[2024-07-15 07:40] VITALS: BP 126/80; BMI 39.6
== END 2024-07-15 08:08 | disposition home or self-care (01) ==
PROVIDERS: PCP Internal Medicine; Visit Provider Internal Medicine
DX: M54.50 Low back pain, unspecified (principal); E66.9 Obesity, unspecified; F32.0 Major depressive disorder, single episode, mild; Z68.39 Body mass index [BMI] 39.0-39.9, adult; I10 Essential (primary) hypertension; G47.33 Obstructive sleep apnea (adult) (pediatric); K21.9 Gastro-esophageal reflux disease without esophagitis; E78.00 Pure hypercholesterolemia, unspecified; F41.9 Anxiety disorder, unspecified

== ENCOUNTER 2024-09-10 11:06 | Outpatient (REF) | payer OTHER, SELFPAY ==
[2024-09-10 18:25] LABS: Amphetamine Screen Urine Not Detected (Not Detect); Barbiturates, Urine Not Detected (Not Detect); Benzodiazepines Screen Urine Not Detected (Not Detect); Buprenorphine Scr Not Detected (Not Detect); Cannabinoid Screen Urine Not Detected (Not Detect); Cocaine Screen Urine Not Detected (Not Detect); Fentanyl, urine Not Detected (Not Detect); Methadone Screen, Urine Not Detected (Not Detect); Opiate Screen Urine Not Detected (Not Detect); Oxycodone Screen Urine Not Detected (Not Detect); Phencyclidine Screen Urine Not Detected (Not Detect)
[2024-09-16 13:08] LABS: Desmethyltramadol, Ur NEGATIVE
[2024-09-16 13:09] LABS: Tramadol, Ur NEGATIVE
[2024-09-16 13:11] LABS: Alphahydroxymidazolam,GCMS Ur NEGATIVE; Alphahydroxytriazolam, GCMS Ur NEGATIVE; Alprazolam, GCMS Urine NEGATIVE; Aminoclonazepam, GCMS Urine NEGATIVE; Flurazepam Metabolite,GCMS Ur NEGATIVE; Hydromorphone, Ur NEGATIVE; Lorazepam GCMS Urine NEGATIVE; Morphine, Ur NEGATIVE; Nordiazepam, GCMS Urine NEGATIVE; Norhydrocodone, Ur NEGATIVE; Noroxycodone, Ur NEGATIVE; Oxazepam, GCMS Urine NEGATIVE; Oxymorphone, Ur NEGATIVE; Temazepam, GCMS Urine NEGATIVE
[2024-09-17 10:49] LABS: Codeine, Ur NEGATIVE; Hydrocodone, Ur NEGATIVE; Oxycodone, Ur NEGATIVE
== END 2024-09-10 11:07 | disposition home or self-care (01) ==
LOC: HO.LNP 11:06
PROVIDERS: PCP Internal Medicine; Visit Provider Internal Medicine
DX: M54.50 Low back pain, unspecified (principal); I10 Essential (primary) hypertension; F32.0 Major depressive disorder, single episode, mild; K21.9 Gastro-esophageal reflux disease without esophagitis; F41.9 Anxiety disorder, unspecified; Z79.899 Other long term (current) drug therapy
CPT/HCPCS: 80307; 80346; 80365; 80373; 90471; 96127; G0480

== ENCOUNTER 2024-09-10 11:06 | Outpatient (AMB) | payer OTHER, SELFPAY ==
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
[2024-09-10 11:09] VITALS: BP 130/82; BMI 39.9
== END 2024-09-10 11:39 | disposition home or self-care (01) ==
PROVIDERS: PCP Internal Medicine; Visit Provider Internal Medicine
DX: M54.50 Low back pain, unspecified (principal); I10 Essential (primary) hypertension; F32.0 Major depressive disorder, single episode, mild; K21.9 Gastro-esophageal reflux disease without esophagitis; F41.9 Anxiety disorder, unspecified; Z23 Encounter for immunization

== ENCOUNTER 2025-01-10 14:30 | Outpatient (AMB) | payer OTHER, SELFPAY ==
[2025-01-10 14:37] VITALS: BP 110/74; PULSE 78; TEMP 36.9; O2SAT 97; BMI 39.3
--- NOTE | 2025-01-10 14:37 | MHC.OFFWIV ---
Intake Vital Signs 01/10/25 14:37 Height 5 ft 9 in Weight 266 lb BMI 39.3 BP 110/74 Blood Pressure Location Rt brachial Position Sitting Pulse 78 Pulse Source Pulse Oximeter Temp 98.4 F Pulse Oximetry (%) 97 Intake Visit Reasons: EP-lt side chest pain Patient Tobacco Use Status: Former Tobacco user Allergies acetaminophen (From TYLENOL) Allergy (Unknown, Verified 09/10/24 11:26) HX LIVER FAILURE? HPI HPI Comments History of Present Illness Details History of Present Illness - The patient is a 34-year-old male presenting with left sided chest pain. - The chest pain began a few weeks ago, with no clear trigger, and is sharp, intermittent, and sometimes radiates to the arm and back. - The pain worsens with breathing and movement, accompanied by shortness of breath but not nausea. - Ibuprofen has been ineffective in alleviating the pain. - The patient has a stable history of hypertension and no family history of cardiac issues. - He has a history of anxiety, previously treated with medication that was discontinued due to lack of efficacy. - The patient has gastroesophageal reflux disease, managed with medication, and vapes nicotine products but not marijuana. 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 - He denies SOB, ALVAREZ, abd pain, n/v/d, back pain, shoulder pain, COLVIN, cold symptoms, neck pain, numbness or tingling. Physical Exam General: Cooperative, healthy appearing, comfortable, no acute distress and well developed Orientation: Patient oriented x3 Limitations: No limitations Head: Normal to inspection Ears: Hearing grossly normal bilaterally Nose: Normal external nose present Neck: Normal visual inspection and Yes full ROM Respiratory: Normal respiratory effort and able to speak in complete sentences. Clear to auscultation bilaterally. No w/r/r noted. Cardiovascular: Regular rate and rhythm. Normal S1 and S2. TTP of the anterior chest wall. No crepitus noted. GI: Normal to inspection. Soft to palpation and nontender. No guarding or rebound tenderness noted. Skin: No rashes or lesions noted Neuro: Patient oriented x3 Extremities: Normal to inspection. No edema noted. Patient was informed and verbally consented to the use of an ambient scribe for clinic note documentation during this visit. [facility] Medical History (Updated 09/10/24 @ 12:15 by Ginger Helms MD) Elevated BP without diagnosis of hypertension Obesity (BMI 35.0-39.9 without comorbidity) Sciatica of right side associated with disorder of lumbosacral spine Degenerative disc disease at L5-S1 level Surgical History No pertinent past surgical history Family History Father Diabetes Hypertension Anxiety Mother Fibromyalgia Arthritis Other Mental health disorder Social History Housing: House Alcohol intake: former Patient Tobacco Use Status: Former Tobacco user Tobacco use type: Cigarette e-Cigarette/Vaping Use: Currently Using Second Hand Smoke Exposure: No service: No Current occupational status: unemployed Current occupational exposures/hazards: No Cognitive needs: No Hearing needs: No Vision needs: No Review of Systems Const All systems reviewed & are unremarkable except as noted in HPI and below Physical Exam Vital Signs: Last Vital Signs Temp 98.4 F 01/10/25 14:37 Pulse 78 01/10/25 14:37 BP 110/74 01/10/25 14:37 Pulse Ox 97 01/10/25 14:37 BMI result Body Mass Index 39.3 Assessment & Plan Assessment & Plan (1) Chest pain: Code(s): R07.9 - Chest pain, unspecified Qualifiers: Chest pain type: unspecified Qualified Code(s): R07.9 - Chest pain, unspecified Plan Most likely MSK CP vs arrhythmia vs ACS vs gastritis vs anxiety Plan - Perform a chest x-ray to evaluate the heart and lungs. - Conduct an electrocardiogram to assess cardiac function. - Suggest NSAIDs ad a muscle relaxer for pain - Activities as tolerated - Needs a f/u with his PCP - Advised to go to the ER if chest pain worsens, SOB, nausea occur for a further work up Orders: Orders XR chest 2V Today R05.9 - Cough, unspecified AMB EKG-In Office Today R07.9 - Chest pain, unspecified Medications: New cyclobenzaprine 5 mg PO tid PRN 21 tabs 0RF Muscle Spasm 7 days Coding Level of Care Code Est Pt Level 4 (04980) Diagnoses Chest pain, unspecified type R07.9 Chest pain type: unspecified
== END 2025-01-10 15:42 | disposition home or self-care (01) ==
PROVIDERS: PCP Internal Medicine; Visit Provider Physician Assistant Medical
DX: R07.9 Chest pain, unspecified (principal)

== ENCOUNTER 2025-01-10 14:30 | Outpatient (REF) | payer OTHER, SELFPAY ==
--- NOTE | ~2025-01-10 | XR_ITS ---
EXAMINATION: XR CHEST CLINICAL INFORMATION: R05.9 - Cough, unspecified COMPARISON: July 03, 2023. TECHNIQUE: 2 views of the chest were obtained. FINDINGS: No consolidation, pleural effusion or pneumothorax. No hyperinflation. Cardiomediastinal silhouette size is normal. Osseous structures are intact. XR/XR chest 2V IMPRESSION: No acute airspace disease. Normal chest x-ray. Electronically signed by: Andrea Aaron MD 01/10/2025 03:42 PM EDT
== END 2025-01-10 14:31 | disposition home or self-care (01) ==
LOC: HO.HMGCX 14:30
PROVIDERS: PCP Internal Medicine; Visit Provider Physician Assistant Medical
DX: R07.9 Chest pain, unspecified (principal); R05.9 Cough, unspecified
CPT/HCPCS: 71046

== ENCOUNTER → 2025-01-10 15:30 | Outpatient (BNV) | payer OTHER, SELFPAY | PROVIDERS: PCP Internal Medicine; Visit Provider Radiology Diagnostic Radiology | DX: R05.9 Cough, unspecified (principal) | CPT/HCPCS: 71046 ==

== ENCOUNTER 2025-01-22 14:39 | Outpatient (AMB) | payer OTHER, SELFPAY ==
--- NOTE | 2025-01-22 14:42 | MHC.PC.OV ---
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 Medication List - Last Reconciled 01/22/25 by Ginger Helms MD atorvastatin 20 mg PO BEDTIME 90 days CPAP 16 cmH2O fluticasone propionate 50 mcg/actuation (Flonase Allergy Relief) 1 spray intranasal DAILY 30 days lisinopril 5 mg PO DAILY 90 days naloxone 4 mg/actuation (Narcan) 4 mg intranasal Q2M PRN 30 days pantoprazole 40 mg PO DAILY 90 days tramadol 50 mg PO Q8H PRN 30 days Tobacco use date assessed: 09/10/24 Dental Screening Dental Screen Date: 09/10/24 HPI HPI Comments History of Present Illness Details The patient is a 34-year-old male presenting for a physical examination. He has a history of obesity with a BMI of 38, and he has been advised to diet and exercise to reach a BMI goal of 30. The patient also reports chronic low back pain, which is managed with Tramadol. Additionally, he complains of chest pain, for which a stress test has been ordered. His last tetanus, diphtheria, and pertussis (Tdap) vaccination was in 2011, and he will receive an updated vaccination today. [facility] Medical History Elevated BP without diagnosis of hypertension Obesity (BMI 35.0-39.9 without comorbidity) Sciatica of right side associated with disorder of lumbosacral spine Degenerative disc disease at L5-S1 level Surgical History No pertinent past surgical history Family History Father Diabetes Hypertension Anxiety Mother Fibromyalgia Arthritis Other Mental health disorder Social History Housing: House Alcohol intake: former Patient Tobacco Use Status: Former Tobacco user Tobacco use type: Cigarette e-Cigarette/Vaping Use: Currently Using Second Hand Smoke Exposure: No service: No Current occupational status: employed Current occupational exposures/hazards: No Cognitive needs: No Hearing needs: No Vision needs: No Questionnaire PHQ-9 Over the last 2 weeks, how often have you been bothered by any of the following problems? 1. Little interest or pleasure in doing things: more than half the days 2. Feeling down, depressed, or hopeless: more than half the days 3. Trouble falling or staying asleep, or sleeping too much: more than half the days 4. Feeling tired or having little energy: more than half the days 5. Poor appetite or overeating: more than half the days 6. Feeling bad about yourself - or that you are a failure or have let yourself or your family down: more than half the days 7. Trouble concentrating on things, such as reading the newspaper or watching television: several days 8. Moving or speaking so slowly that other people could have noticed. Or the opposite - being so fidgety or restless that you have been moving around a lot more than usual: not at all 9. Thoughts that you would be better off or of hurting yourself in some way: not at all Total score: 13 Depression Screening Interpretation: Positive Depression Screening Follow-up: Existing condition and Follow-up Visit Requested Depression Screening Done: Yes 61945 - PHQ-9 Billing: Yes Source: Developed by Drs. Talon Alvarado, Felisa Payne, Rip Chin and colleagues, with an educational janet from [employer]. Thrive Questionnaire Date Thrive assessed: 01/22/25 I am a: Patient What is your living situation today?: I have a steady place to live Within the past 12 months, did the food you bought not last and you didn't have the money to get more?: Never true Within the past 12 months, did you worry whether your food would run out before you got money to buy more?: Never true Do you have trouble paying for medicines?: No Do you have trouble getting transportation to medical appointments?: No Do you have trouble paying your heating and electricity bill?: No Do you have trouble taking care of your child, family member or friend?: No Do you have trouble with day-to-day activities such as bathing, preparing meals, shopping, managing finances, etc.?: No Are you currently unemployed and looking for a job?: No Are you interested in more education?: I choose not to answer this question Please select the resources that you would like help with: Utilities Currently or been in a relationship where the following occur: No concerns reported THRIVE Score: 0 AUDIT C Alcohol Use Questionnaire (AUDIT-C) 1. How often do you have a drink containing alcohol?: Never Total Score: 0 Score Reviewed/Action Taken: No JAMES-7 AMB Questionnaire JAMES-7 Date JAMES - 7 assessed: 01/22/25 Feeling nervous, anxious, or on edge: 3 = Nearly every day Not being able to stop or control worryin = Nearly every day Worrying too much about different things: 3 = Nearly every day Trouble relaxin = Nearly every day Being so restless that it is hard to sit still: 1 = Several days Becoming easily annoyed or irritable: 0 = Not at all Feeling afraid as if something awful might happen: 1 = Several days Total JAMES-7 score (0-4 normal; 5-9 mild; 10-14 moderate; 15-21 severe): 14 Source: Developed by Drs. Talon Alvarado, Felisa Payne, Rip Chin and colleagues, with an educational janet from [employer]. JAMES-7 Assessment Billing JAMES-7 Assessment Tool: JAMES-7 Assessment 13291 Review of Systems Const All systems reviewed & are unremarkable except as noted in HPI and below Card Reports chest pain at rest, Reports chest pain with activity, Denies edema, Denies irregular heart rhythm, Denies claudication, Denies dyspnea, Denies dyspnea on exertion, Denies orthopnea, Denies paroxysmal nocturnal dyspnea and Denies slow heart rate Resp Denies cough, Denies dyspnea and Denies dyspnea on exertion GI Denies abdominal pain, Denies change in bowel habits, Denies excessive flatus, Denies nausea and Denies vomiting Denies urinary hesitancy, Denies urinary incontinence and Denies urinary urgency Musc Denies abnormal gait, Denies atrophy, Denies deformity and Denies limited range of motion Skin/Breast Denies bleeding lesions, Denies changing lesions and Denies rash Neuro Denies abnormal gait and Denies lack of coordination Physical exam (Primary Care) Vital Signs: Last Vital Signs BP 120/86 01/22/25 14:43 BMI result Body Mass Index 38.7 BMI Assessment/Plan discussion: High BMI High, discussed plan: lifestyle, weight reduction, dietary and physical activity Tobacco/Smoking Status: Tobacco use Status Tobacco use date assessed 09/10/24 01/22/25 14:47 Patient Tobacco Use Status Former Tobacco user 01/22/25 14:47 Tobacco use type Cigarette 01/22/25 14:47 e-Cigarette/Vaping Use Currently Using 01/22/25 14:47 PHQ-9: PHQ-9 Score PHQ-9: Total score 13 01/22/25 15:19 Depression Screening Interpretation: Positive Depression Screening Follow-up: Existing condition and Follow-up Visit Requested Thrive Assessment: Date of Thrive Assessment Date Thrive assessed 01/22/25 01/22/25 14:47 Currently or been in a relationship where the following occur: No concerns reported HENMT Head: Yes normal to inspection, Yes normocephalic and Yes atraumatic Ears: external ears normal Eyes General: appearance normal, both eyes and all related structures Eyelids: Yes eyelids normal Conjunctivae: conjunctivae normal Neck Neck: Yes normal visual inspection and Yes supple Resp Effort & Inspection: normal respiratory effort Auscultation: clear to auscultation bilaterally Cardio Jugular venous distension: no JVD Rate: regular rate Rhythm: regular rhythm Heart sounds: S1 normal heart sound present and S2 normal heart sound present GI Inspection: Yes normal to inspection Palpation (GI): Soft to palpation and nontender Auscultation: normal bowel sounds Skin General skin exam: no rashes or lesions noted Neuro General: no focal motor deficits Extrem General: Yes full ROM Psych Appearance: grossly normal Immunizations Boostrix Tdap 2.5 Lf unit-8 mcg-5 Lf/0.5 mL intramuscular syringe Performing Provider: Ginger Helms MD [place] [facility] [place] [facility] Administered by: OSVALDO Ram on 01/22/25 15:20 Dose Route Admin Location Dispensed Lot Number Expiration Date [facility] Manager Business [employer] 0.5 mL IM Left Deltoid 0.5 mL [id number] 03/22/27 05860-412-56 [employer] Total Dispensed Waste 0.5 mL 0 % VIS Given Date VIS Provided VIS Publication Date 01/22/25 Single Vaccine 24 Eligibility Eligibility Date Funding Source Not VFC Eligible 01/22/25 Private Coding Level of Care Code Est Pt Level 3 (25039) Est Pt Prev Care 18-39y(64564) Diagnoses Physical exam Z00.00 Mild major depression F32.0 Intermittent chest pain R07.9 Additional Codes JAMES-7 Assessment Billing - JAMES-7 Assessment Tool: JAMES-7 Assessment 53264 ([id number]) PHQ-9 - 04529 - PHQ-9 Billing: Yes ([id number]) Time Spent (min) 35 Assessment & Plan Assessment & Plan (1) Physical exam: Code(s): Z00.00 - Encounter for general adult medical examination without abnormal findings Category: Medical (2) Mild major depression: Code(s): F32.0 - Major depressive disorder, single episode, mild Category: Medical (3) Intermittent chest pain: Code(s): R07.9 - Chest pain, unspecified Category: Medical Plan The patient will receive a tetanus, diphtheria, and pertussis Tdap) vaccination today to update his immunization status. A stress test has been ordered to evaluate the reported chest pain. The patient has been advised to engage in diet and exercise to address obesity, aiming for a BMI goal of 30. Patient was informed and verbally consented to the use of an ambient scribe for clinic note documentation during this visit. Orders: Orders Comprehensive [place]. Panel Fast Today Z00.00 - Encounter for general adult medical examination without abnormal findings CA cardiopulmonary stress test Today R07.9 - Chest pain, unspecified TDaP Immunization Today Z23 - Encounter for immunization Lipid Panel Today E78.5 - Hyperlipidemia, unspecified Medications: Refilled tramadol 50 mg PO Q8H PRN 90 tabs 0RF pain 30 days M51.37 - Other intervertebral disc degeneration, lumbosacral region tramadol 50 mg PO Q8H 30 days PRN 90 tabs 0RF pain M51.37 - Other intervertebral disc degeneration, lumbosacral region
[2025-01-22 14:43] VITALS: BP 120/86; BMI 38.7
== END 2025-01-22 15:16 | disposition home or self-care (01) ==
LOC: HO.HMCH 14:40
PROVIDERS: PCP Internal Medicine; Visit Provider Internal Medicine
DX: Z00.00 Encounter for general adult medical examination without abnormal findings (principal); F32.0 Major depressive disorder, single episode, mild; R07.9 Chest pain, unspecified; Z23 Encounter for immunization

== ENCOUNTER → 2025-01-22 14:39 | Outpatient (BNVA) | payer OTHER, SELFPAY | PROVIDERS: PCP Internal Medicine; Visit Provider Internal Medicine | DX: Z00.00 Encounter for general adult medical examination without abnormal findings (principal); E66.9 Obesity, unspecified; M54.50 Low back pain, unspecified; G89.29 Other chronic pain; F32.0 Major depressive disorder, single episode, mild; R07.9 Chest pain, unspecified; M51.379 Other intervertebral disc degeneration, lumbosacral region without mention of lumbar back pain or lower extremity pain; Z23 Encounter for immunization; Z68.38 Body mass index [BMI] 38.0-38.9, adult; Z79.891 Long term (current) use of opiate analgesic | CPT/HCPCS: 90471; 90715; 96127 ==

== ENCOUNTER 2025-02-12 21:34 | Emergency (ER) | payer OTHER, SELFPAY ==
--- NOTE | ~2025-02-12 | XR_ITS ---
CLINICAL HISTORY: fall pain 3 view right foot Comparison: None provided Findings: Overall foot alignment is maintained. No definite acute or displaced fracture identified. Couple of tiny linear loose bony fragments overlying dorsal aspect of the talus and navicular best seen on lateral projection with mild associated overlying soft tissue edema. Joint spaces are relatively maintained. Impression: 1. Couple of small linear bone fragments overlying dorsal aspect of the distal talus and navicular with mild overlying soft tissue edema. Correlation with patient's point tenderness is recommended as possibility of an avulsion type fracture/injury may be considered in the appropriate clinical setting. 2. Additional findings as above. This document has been electronically signed by: Adriana Marino MD on 02/12/2025 22:53:09
[2025-02-12 22:18] VITALS: BP 99/79; PULSE 91; RESP 17; TEMP 36.6; O2SAT 100; BMI 38.7
--- NOTE | 2025-02-13 01:52 | ED_ITS ---
HPI - Extremity Injury (Lower) General Chief Complaint: Extremity Injury, Lower Stated Complaint: fell & fractured rt ankle Time Seen by Provider: 02/13/25 01:39 Source: patient Mode of arrival: ambulatory Limitations: no limitations History of Present Illness ED Provider: Dr. Kaitlynn Sue HPI Narrative: Patient comes to the emergency room complaining of right foot pain on the dorsum. According to the patient, patient was walking down the stairs, missed a few steps, sprain his ankle and heard a few cracks coming from the dorsum of his foot. Patient states that since then, he has noticed a lump on the dorsum of the foot and is unable to bear weight. Related Data Previous Rx's ?Medication ?Instructions ?Recorded CPAP #1 ea 10/24/22 fluticasone propionate 50 1 spray intranasal DAILY 30 days 01/18/24 mcg/actuation nasal #16 grams spray,suspension (Flonase Allergy Relief) atorvastatin 20 mg tablet 20 mg PO BEDTIME 90 days #90 tabs 04/10/24 naloxone 4 mg/actuation nasal 4 mg intranasal Q2M PRN opioid 09/10/24 spray (Narcan) overdose 30 days #2 ea lisinopril 5 mg tablet 5 mg PO DAILY 90 days #90 ta bs 11/05/24 pantoprazole 40 mg tablet,delayed 40 mg PO DAILY 90 da ys #90 tabs 11/05/24 release tramadol 50 mg tablet 50 mg PO Q8H PRN pain 30 day s #90 01/22/25 tabs ketorolac 10 mg tablet 10 mg PO Q8H #12 tabs Allergies Allergy/AdvReac Type Severity Reaction Status Date / Time acetaminophen (From TYLENOL) Allergy Unknown HX LIVER Verified 02/12/25 22:22 FAILURE? Review of Systems Review of Systems: Constitutional : No Weight loss, No Fever, No Chills, No Night Sweats, No Fatigue, No Malaise ENT/Mouth : No Hearing loss, No Ear Pain, No Nasal Congestion, No Sinus Pain, No Hoarseness, No sore throat, No Rhinorrhea, No Swallowing Difficulty Eyes: No Eye Pain, No Swelling, No Redness, No Foreign Body, No Discharge, No Vision Changes Cardiovascular : No Chest Pain, No SOB, No Dyspnea on Exertion, No Orthopnea, No Edema, No Palpitations Respiratory : No Cough, No Sputum, No Wheezing, No Smoke Exposure, No Dyspnea Gastrointestinal : No Nausea, No Vomiting, No Diarrhea, No Constipation, No abdominal Pain, No Hematochezia, No Melena Genitourinary : no irregular bleeding, No Dysuria, No Urinary Frequency, No Hematuria, No Urinary Incontinence, No Urgency, No Flank Pain, No Urinary Flow Changes, No Hesitancy Musculoskeletal : Complaining of pain and swelling on the dorsum of the right foot, unable to bear weight Skin : No Skin Lesions, No rash Neuro : No Weakness, No Numbness, No Paresthesias, No Loss of Consciousness, No Dizziness, No Headache Psych : No Anxiety/Panic, No Depression, No SI/HI/AH/VH, No Social Issues, Heme/Lymph: No Bruising, No Bleeding,No Lymphadenopathy Endocrine : No Polyuria, No Polydipsia, No Temperature Intolerance PMFSH Past Medical History Medical History Elevated BP without diagnosis of hypertension Obesity (BMI 35.0-39.9 without comorbidity) Sciatica of right side associated with disorder of lumbosacral spine Degenerative disc disease at L5-S1 level Surgical History No pertinent past surgical history Family History Family History Father Diabetes Hypertension Anxiety Mother Fibromyalgia Arthritis Other Mental health disorder Social History Social History Housing: House Alcohol intake: former Patient Tobacco Use Status: Former Tobacco user Tobacco use type: Cigarette e-Cigarette/Vaping Use: Currently Using Second Hand Smoke Exposure: No Advance Directives: No Do you have a plan to hurt others: No Plan service: No Current occupational status: employed Current occupational exposures/hazards: No Cognitive needs: No Hearing needs: No Vision needs: No Physical Exam Exam: Exam: Appearance: Alert. Oriented X3. No acute distress. Eyes: Pupils equal, round and reactive to light. ENT: Pharynx normal. Neck: Normal inspection. Neck supple. No lymph nodes noted. No crepitus CVS: Normal heart rate and rhythm. Pulses normal. Normal S1 and S2 Respiratory: No respiratory distress. Breath sounds normal. No Wheezing. No rales Abdomen: Soft and nontender. No rigidity. No distention. Skin: Skin warm and dry. Normal skin color. Normal skin turgor. Extremities: No lower extremity edema. No Lacerations. No Rash. On patient's dorsum of the right foot, there is an ecchymosis on the lateral aspect. Neuro: Oriented X 3. No motor deficit. No sensory deficit. Moving all extremities. No slurred speech. CN 2 through 12 grossly intact Psych: calm, cooperative, normal affect Vital Signs: Vital Signs: Last Vital Signs Temp 98.7 F 02/13/25 02:08 Pulse 77 02/13/25 02:08 Resp 18 02/13/25 02:08 BP 119/83 02/13/25 02:08 Pulse Ox 97 02/13/25 02:08 O2 Del Method Room Air 02/13/25 02:08 BMI result Body Mass Index 38.7 Course Course Course Narrative: Patient reports a fall/pain ankle from earlier today. Unable to bear weight. Medications Administered Discontinued Medications Generic Name Dose Route Start Last Admin Trade Name Freq PRN Reason Stop Dose Admin Ketorolac Tromethamine 60 mg 02/13/25 01:50 02/13/25 02:14 Ketorolac Tromethamine 60 Mg/2 Ml Vial IM 02/13/25 01:51 60 mg ONCE ONE Administration Medical Decision Making Medical Decision Making [facility] Narrative: My interpretation x-ray: Couple of small linear bone fragments overlying the d orsal aspect of the distal talus and navicular with overlying soft tissue edema I discussed the findings with the patient Patient's foot will be splinted and patient will be instructed to follow-up with Orthopedics, crutches will be provided Patient's foot was put in a splint Normal neurological check after the splint was placed, normal sensation, normal capillary refill. Patient reports that his pain feels okay and it is not tight Patient states that the pain improved after IM ketorolac Differential Diagnosis Differential Diagnoses: The differential diagnosis associated with the presentation includes (Ankle sprain, fracture, dislocation, contusion) Admission/Observation Consideration of admission/observation: Escalation of care including admission/observation considered (Patient reporting a lot of pain, given patient's pain report, observation was considered.) Independent Interpretation I performed an independent interpretation of an: Plain X-Ray Radiology Impression Discussion of test interpretation with radiology: I have reviewed the radiologist's reading. Radiologist Impression: 1. Couple of small linear bone fragments overlying dorsal aspect of the distal talus and navicular with mild overlying soft tissue edema. Correlation with patient's point tenderness is recommended as possibility of an avulsion type fracture/injury may be considered in the appropriate clinical setting. 2. Additional findings as above. Procedures Orthopedic Splinting/Casting Injury #1: Side: right Lower Extremity Injury Location: lower leg and foot Lower Extremity Immobilizer: posterior splint Other Orthopedic Equipment: crutches Critical Care Time Critical Care Time Critical Care Time: Yes Total Critical Care Time: 45 Attestation: I have personally provided critical care time. Time includes review of lab data, radiology results, discussion with consultants, and monitoring for potential decompensation. Intervention performed as documented. Discharge Plan Discharge Clinical Impression: Foot, fracture, navicular Patient Disposition: Home, Self-Care Instructions: Crutch Instructions (ED), Foot Fracture in Adults (ED) Additional Instructions: Please follow-up with your primary care physician tomorrow. If you have any worsening or new symptoms, please return to the emergency room or call 911 Prescriptions: New ketorolac 10 mg tablet 10 mg PO Q8H Qty: 12 0RF Rx Instructions: Do not use this medication with NSAIDs, only Tylenol if needed No Action (DME) CPAP Device See Rx Instructions .Route Qty: 1 0RF Rx Instructions: 16 cmH2O atorvastatin 20 mg tablet 20 mg PO BEDTIME 90 Days Qty: 90 1RF lisinopril 5 mg tablet 5 mg PO DAILY 90 Days Qty: 90 0RF pantoprazole 40 mg tablet,delayed release (DR/EC) 40 mg PO DAILY 90 Days Qty: 90 3RF fluticasone propionate [Flonase Allergy Relief] 50 mcg/actuation spray,suspension 1 spray intranasal DAILY 30 Days Qty: 16 3RF Rx Instructions: administer into each nostril naloxone [Narcan] 4 mg/actuation spray,non-aerosol 4 mg intranasal Q2M PRN (Reason: opioid overdose) 30 Days Qty: 2 2RF Rx Instructions: spray 1 dose into ONE nostril; alternate nostrils w each dose until help arrives tramadol 50 mg tablet 50 mg PO Q8H PRN (Reason: pain) 30 Days Qty: 90 0RF Referrals: Sanjuana Lara PA-C [Physician Environmental Restoration Planner, Orthopedics] Stand Alone Forms: Work/School Release Print Language: Canadian
[2025-02-13 02:08] VITALS: BP 119/83; PULSE 77; RESP 18; TEMP 37.1; O2SAT 97
[2025-02-13 03:01] VITALS: BP 108/73; PULSE 78; RESP 18; TEMP 36.9; O2SAT 97
[2025-02-13 03:05] VITALS: BP 108/73; PULSE 78; RESP 18; TEMP 36.9; O2SAT 97
--- NOTE | 2025-02-13 03:17 | MHC.EDTECH ---
Patient was given crutches per ,patient taught how to use them,pt ambulated and tolerated well.
== END 2025-02-13 03:06 | disposition home or self-care (01) ==
PROVIDERS: Emergency Provider Emergency Medicine; PCP Internal Medicine
DX: S92.251A Displaced fracture of navicular [scaphoid] of right foot, initial encounter for closed fracture (principal); W10.8XXA Fall (on) (from) other stairs and steps, initial encounter; Y93.89 Activity, other specified; Y92.89 Other specified places as the place of occurrence of the external cause; Y99.8 Other external cause status
CPT/HCPCS: 29515; 73630; 96372; 99283; 99284; J1885

== ENCOUNTER → 2025-02-12 22:30 | Outpatient (BNV) | payer OTHER, SELFPAY | PROVIDERS: PCP Internal Medicine; Visit Provider Radiology Diagnostic Radiology | DX: M79.671 Pain in right foot (principal); W19.XXXA Unspecified fall, initial encounter | CPT/HCPCS: 73630 ==

== ENCOUNTER 2025-02-21 08:12 | Outpatient (REF) | payer OTHER, SELFPAY ==
--- NOTE | ~2025-02-21 | XR_ITS ---
EXAMINATION: XR FOOT, RIGHT CLINICAL INFORMATION: M79.673 - Pain in unspecified foot COMPARISON: February 12, 2025 TECHNIQUE: AP, lateral, and oblique views of the right foot. FINDINGS: Spindle-shaped calcific density dorsal to the head of talus a small focal calcification dorsal to the navicular appear more well-defined and smaller on the current examination consistent with early healing. XR/XR foot RT min 3V IMPRESSION: Subacute Chopart joint sprain with early healing of a dorsal talonavicular avulsion fracture. Electronically signed by: Efren Crum MD 02/21/2025 11:07 AM EDT
--- OUTSIDE RECORDS SUMMARY | 2025-02-21 08:16 | XMS_ITS | Clinical Summary ---
Author Organization [facility] Address [address] [place] [phone] Phone Care Team Providers Care Lean Manufacturing Leader Name Role Phone Ginger Mock MD Primary Care Provid er Allergies No known active allergies Medications cyclobenzaprine (FLEXERIL) 10 MG tablet Take 15 mg by mouth nightly at bedtime. 1.5 tabs at night Active naproxen (NAPROSYN) 500 MG tabletIndications :Disorder of sacrum Take 1 tablet (500 mg total) by mouth 2 (two) times a day with meals. 180 tablet 1 Active Additional Information Patient not taking.Reported on 03/15/2021 diazePAM (VALIUM) 10 MG tabletIndications :Lumbar radiculopathy Take 1 tablet (10 mg total) by mouth once for 1 dose. One hour prior to MRI. 1 tablet 1 Active multivitamins with minerals- folic acid-lycopene (MEN'S ONE-A-DAY) 400-20-300 mcg Tab Take 1 tablet by mouth daily. Active cyclobenzaprine (FLEXERIL) 10 MG tabletIndications :Lumbar radiculopathy Take 1 tablet (10 mg total) by mouth 3 (three) times a day as needed. 60 tablet 2 1 Active Active Problems Problem Noted Date Diagnosed Date Disorder of sacrum 05/28/2020 Social History Tobacco Use Types Packs/Day Years Used Date Smoking Tobacco: Former Cigarettes Q uit: 2019 Smokeless Tobacco: Never Education Answer Date Recorded Are you interested in more education? Not on karan e 11/18/2022 Are you concerned about learning? Not on file 11/18/2022 No 11/18/2022 No 11/18/2022 Digital Access Answer Date Recorded No 12/17/2022 No 12/17/2022 No 12/17/2022 Reliable internet access at home? Not on file 12/17/2022 Device with a working camera? Not on file Sex and Gender Information Value Date Recorded Sex Assigned at Not on file Legal Sex Male 3:41 PM EDT Gender Identity Not on file Sexual Orientation Not on file Last Filed Vital Signs Vital Sign Reading Time Taken Comments Blood Pressure - - Pulse - - Temperature 36.3 C (97.4 F) 07/16/2020 11:20 AM EST Respiratory Rate - - Oxygen Saturation - - Inhaled Oxygen Concentration - - Weight 117.9 kg (260 lb) 02/28/2021 12:55 PM EDT Height 175.3 cm (5' 9 ) 02/28/2021 12:55 PM EDT Body Mass Index 38.4 02/28/2021 12:55 PM EDT Plan of Treatment Health Maintenance Due Date Last Done Comments Adult Td,Tdap Booster 1991 DEPRESSION SCREENING 2003 SMOKING Hx and SMOKELESS TOBACCO SCREENING 12/17/2004 HEPATITIS C SCREENING 12/17/2009 HIV ONE-TIME SCREENING (18-6 5 YEARS) 12/17/2009 COVID-19 VACCINE (2023-2 5 season) 2024 04/14/2021, 03/24/2021 HEPATITIS A VACCINES Aged Out No long er eligible based on patient's age to complete this topic HIB VACCINES Aged Out No longer eligi ble based on patient's age to complete this topic MENINGOCOCCAL VACCINES (ACWY) Aged Out No longer eligible based on patient's age to complete this topic MENINGOCOCCAL VACCINES (B) Aged Out N o longer eligible based on patient's age to complete this topic PNEUMOCOCCAL VACCINES (0-49 years) Aged Out No longer eligible b ased on patient's age to complete this topic Medical Devices Not on file Insurance [employer] Care Teams Lean Manufacturing Leader Relationship Specialty Start Date End Date Ginger Mock MD [address] [place] [address] PCP - General Internal Medicine 04/08/20 Additional Source Comments The information contained in this document represents components of the legal health record. It is not the complete legal health record.[facility]
== END 2025-02-21 08:13 | disposition home or self-care (01) ==
LOC: HO.HOSX 08:12
PROVIDERS: Visit Provider Physician Assistant
DX: S92.251D Displaced fracture of navicular [scaphoid] of right foot, subsequent encounter for fracture with routine healing (principal); M79.671 Pain in right foot; R60.0 Localized edema; W10.8XXD Fall (on) (from) other stairs and steps, subsequent encounter
CPT/HCPCS: 73630

== ENCOUNTER 2025-02-21 10:43 | Outpatient (AMB) | payer OTHER, SELFPAY ==
[2025-02-21 10:53] VITALS: BMI 38.7
--- NOTE | 2025-02-21 10:53 | MHC.OFFVIS ---
Vital Signs 02/21/25 10:53 02/21/25 10:57 Height 5 ft 9 in 5 ft 9 in Weight 262 lb 262 lb BMI 38.7 38.7 Intake Visit Reasons: ED/FC-Rt foot fx s/p fall DOI: 02/13/25 Intake Note: Bentley is a 34 year old male who presents today for a Fracture Care visit for his Right Foot Injury. While going down the stairs on 02/12/25 he missed a few steps and fell down the remainder of stairs. While falling her heard/felt pops in his foot with immediate onset of pain. He was seen at [facility] the same day as the injury where he was placed in a posterior splint. Splint removed today in office and xrays updated. His pain has improved since the date of injury but is still present. Denies numbness and tingling in the toes. Allergies acetaminophen (From TYLENOL) Allergy (Unknown, Verified 02/21/25 11:00) HX LIVER FAILURE? HPI HPI ED/FC-Rt foot fx s/p fall DOI: 02/13/25: Details: Bentley is a 34 year old male who presents today for a Fracture Care visit for his Right Foot Injury. While going down the stairs on 02/12/25 he missed a few steps and fell down the remainder of stairs. While falling her heard/felt pops in his foot with immediate onset of pain. He was seen at [facility] the same day as the injury where he was placed in a posterior splint. Splint removed today in office and xrays updated. His pain has improved since the date of injury but is still present. Denies numbness and tingling in the toes. [facility] Medical History Elevated BP without diagnosis of hypertension Obesity (BMI 35.0-39.9 without comorbidity) Sciatica of right side associated with disorder of lumbosacral spine Degenerative disc disease at L5-S1 level Surgical History No pertinent past surgical history Family History Father Diabetes Hypertension Anxiety Mother Fibromyalgia Arthritis Other Mental health disorder Social History (Reviewed 02/21/25 @ 10:57 by Melody [facility] House Alcohol intake: former Patient Tobacco Use Status: Former Tobacco user Tobacco use type: Cigarette e-Cigarette/Vaping Use: Currently Using Second Hand Smoke Exposure: No service: No Current occupational status: employed Current occupational exposures/hazards: No Cognitive needs: No Hearing needs: No Vision needs: No Review of Systems Const All systems reviewed & are unremarkable except as noted in HPI and below Physical Exam Vital Signs: BMI result Body Mass Index 38.7 Const General: cooperative, healthy appearing and no acute distress Resp Effort & Inspection: normal respiratory effort and able to speak in complete sentences Extrem Other: Right ankle: Mild edema on the dorsal aspect of the foot over the navicular accompanied by tenderness to palpation. Patient is able to demonstrate dorsiflexion, plantar flexion, pronation and supination with limitations due to pain. Negative anterior drawer. Sensation intact. Pedal Pulse intact. Psych Appearance: grossly normal Mental Status: mental status grossly normal Attitude: cooperative Assessment & Plan Assessment & Plan (1) Avulsion fracture of navicular bone of right foot: Code(s): S92.251A - Displaced fracture of navicular [scaphoid] of right foot, initial encounter for closed fracture Category: Medical Plan Bentley is a 34 year old male who presents today for a Fracture Care visit for his Right Foot Injury. While going down the stairs on 02/12/25 he missed a few steps and fell down the remainder of stairs. While falling her heard/felt pops in his foot with immediate onset of pain. He was seen at [facility] the same day as the injury where he was placed in a posterior splint. Splint removed today in office and xrays updated. His pain has improved since the date of injury but is still present. Denies numbness and tingling in the toes. While in the office today, the patient was fit for a tall walking boot. He was instructed that he may weightbear as tolerated. Additionally, I have placed an order for physical therapy to work on range of motion. Once full painless range of motion has been obtained patient will progress to strengthening. Patient has been out of work since the injury as there is no light duty available for him. Therefore, an out-of-work note has been provided to him until his follow up appointment. Follow up will be in 4 weeks with repeat x-rays, sooner if needed. X-rays of the right foot which were obtained while in the office today and were reviewed by me, Sanjuana Lara PA-C, revealed navicular avulsion fracture. Orders: Orders XR foot RT min 3V Today M79.673 - Pain in unspecified foot Coding Level of Care Code New Pt Level 4 (21221) Diagnoses Avulsion fracture of navicular bone of right foot S92.251A
[2025-02-21 10:57] VITALS: BMI 38.7
== END 2025-02-21 11:17 | disposition home or self-care (01) ==
LOC: HO.HOS 10:44
PROVIDERS: PCP Internal Medicine; Visit Provider Physician Assistant
DX: S92.251A Displaced fracture of navicular [scaphoid] of right foot, initial encounter for closed fracture (principal)
CPT/HCPCS: 99203

== ENCOUNTER → 2025-02-21 10:48 | Outpatient (BNV) | payer OTHER, SELFPAY | PROVIDERS: Visit Provider Radiology Diagnostic Radiology | DX: M79.671 Pain in right foot (principal) | CPT/HCPCS: 73630 ==

== ENCOUNTER 2025-03-21 08:59 | Outpatient (AMB) | payer OTHER, SELFPAY ==
--- NOTE | 2025-03-21 09:09 | MHC.OFFVIS ---
Intake Visit Reasons: OV - rt avulsion fx navicular bone, DOI 02/13/25 Intake Note: Bentley is a 34 year old male who presents today for a follow up of his right avulsion fracture of navicular bone, DOI 02/13/25. At his last visit patient was referred to physical therapy to work on range of motion. Patient reports he is getting better but not fully. He states that he starts his first physical therapy session on 03/25. he has tried walking with out the boot and found it a little difficult but he was able to bear weight. 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 Allergies acetaminophen (From TYLENOL) Allergy (Unknown, Verified 03/21/25 09:15) HX LIVER FAILURE? HPI HPI OV - rt avulsion fx navicular bone, DOI 02/13/25: Details: Mr. Michael Shin is a 34 year old male who presents today for a follow up of his right avulsion fracture of navicular bone, DOI 02/13/25. At his last visit patient was referred to physical therapy to work on range of motion but does not begin until 03/25/25. Patient reports his pain has gotten slightly better. He continues using the tall walking boot. He has tried walking without but was having difficulty with weight-bearing. 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 [facility] Medical History Elevated BP without diagnosis of hypertension Obesity (BMI 35.0-39.9 without comorbidity) Sciatica of right side associated with disorder of lumbosacral spine Degenerative disc disease at L5-S1 level Surgical History No pertinent past surgical history Family History Father Diabetes Hypertension Anxiety Mother Fibromyalgia Arthritis Other Mental health disorder Social History Housing: House Alcohol intake: former Patient Tobacco Use Status: Former Tobacco user Tobacco use type: Cigarette e-Cigarette/Vaping Use: Currently Using Second Hand Smoke Exposure: No service: No Current occupational status: employed 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 Patient is able to demonstrate dorsiflexion, plantar flexion, pronation and supination with limitations due to pain. Negative anterior drawer. Sensation intact. Pedal Pulse intact. Psych Appearance: grossly normal Mental Status: mental status grossly normal Attitude: cooperative Assessment & Plan Assessment & Plan (1) Avulsion fracture of navicular bone of right foot: Code(s): S92.251A - Displaced fracture of navicular [scaphoid] of right foot, initial encounter for closed fracture Category: Medical Plan Mr. Michael Shin is a 34 year old male who presents today for a follow up of his right avulsion fracture of navicular bone, DOI 02/13/25. At his last visit patient was referred to physical therapy to work on range of motion but does not begin until 03/25/25. Patient reports his pain has gotten slightly better. He continues using the tall walking boot. He has tried walking without but was having difficulty with weight-bearing. 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 While in the office today, I have recommended that the patient begin physical therapy as scheduled on 03/25/2025. He will continue wearing the tall walking boot until his physical therapy sessions. The goal will be to wean him out of the tall walking boot and into a supportive shoe within 2 weeks of starting physical therapy. I provided him with an out of work until follow up note and he will follow up in 4-6 weeks with repeat x-rays, sooner if needed. X-rays of the right foot which were obtained while in the office today and were reviewed by me, Sanjuana Lara PA-C, revealed redemonstration of avulsion fracture off of the navicular. Orders: Orders XR foot RT min 3V Today M79.673 - Pain in unspecified foot Coding Level of Care Code Est Pt Level 3 (42040) Diagnoses Avulsion fracture of navicular bone of right foot S92.251A
--- OUTSIDE RECORDS SUMMARY | 2025-03-21 09:51 | XMS_ITS | Clinical Summary ---
Author Organization [facility] Address [address] [place] [phone] Phone Care Team Providers Care Supervisor Riprap Placing Name Role Phone Ginger Mock MD Primary [...] Medical Devices Not on file Insurance [employer] Care Teams Supervisor Riprap Placing Relationship Specialty Start Date End Date Ginger Mock MD [address] [place] [address] PCP - General Internal Medicine 04/08/20 Additional Source Comments The information contained in this document represents components of the legal health record. It is not the complete legal health record.[facility]
== END 2025-03-21 09:33 | disposition home or self-care (01) ==
LOC: HO.HOS 09:00
PROVIDERS: PCP Internal Medicine; Visit Provider Physician Assistant
DX: S92.251A Displaced fracture of navicular [scaphoid] of right foot, initial encounter for closed fracture (principal)
CPT/HCPCS: 99213

== ENCOUNTER → 2025-03-21 09:02 | Outpatient (BNV) | payer OTHER, SELFPAY | PROVIDERS: Visit Provider Radiology Diagnostic Radiology | DX: M79.671 Pain in right foot (principal) | CPT/HCPCS: 73630 ==

== ENCOUNTER 2025-03-21 09:32 | Outpatient (REF) | payer OTHER, SELFPAY ==
--- NOTE | ~2025-03-21 | XR_ITS ---
EXAMINATION: XR FOOT 3 OR MORE VIEWS RIGHT HISTORY: M79.673 - Pain in unspecified foot COMPARISON: Comparison is made with the prior examination dated 02/21/2025. FINDINGS: Three views of the right foot are submitted. Osseous mineralization is normal. Again seen is a linear osseous density adjacent to the anterior aspect of the talus, compatible with an avulsion fracture fragment. An additional punctate calcification dorsal to the navicular is also unchanged. The joint spaces are preserved. The soft tissues are unremarkable. XR/XR foot RT min 3V IMPRESSION: Tiny densities adjacent to the dorsal talus and navicular bones are unchanged. Electronically signed by: Talon Ashraf MD 03/21/2025 09:31 AM EDT
--- OUTSIDE RECORDS SUMMARY | 2025-03-25 10:37 | XMS_ITS | Clinical Summary ---
Author Organization Located Within [facility] Address [address] [place] [address] Phone Care Team Providers Care Administrative Services Officer Name Role Phone Ginger Mock MD Primary [...] Medical Devices Not on file Insurance [employer] Care Teams Administrative Services Officer Relationship Specialty Start Date End Date Ginger Mock MD [address] [place] [address] PCP - General Internal Medicine 04/08/20 Additional Source Comments The information contained in this document represents components of the legal health record. It is not the complete legal health record.[facility]
== END 2025-03-21 09:33 | disposition home or self-care (01) ==
LOC: HO.HOSX 09:32
PROVIDERS: Visit Provider Physician Assistant
DX: S92.251A Displaced fracture of navicular [scaphoid] of right foot, initial encounter for closed fracture (principal); M79.671 Pain in right foot; X58.XXXA Exposure to other specified factors, initial encounter
CPT/HCPCS: 73630

== ENCOUNTER 2025-04-16 12:00 | Outpatient (RCR) | payer OTHER, SELFPAY ==
--- NOTE | 2025-03-25 12:42 | MHC.PT.EP ---
[facility] [address] Office [place] Office [place] Office [address] Gabriella Fern[address]es [address] [phone] F: [phone] F: [phone] F: [phone] F: [phone] Physical Therapy Plan of Care Date of Evaluation: 03/25/25 Date of Surgery: Diagnosis: AVULSION FRACTURE OF NAVICULAR BONE RIGHT FOOT :WBAT Rt LE IN BOOT-> ROM-> ONCE FULL PAINLESS ROM OBTAINED, CAN PROGRESS TO STRENGTHENING; CAN WEAN BOOT WITHIN 2 WEEKS OF STARTING PT Assessment: 34 YO MALE REF TO PT W H/O FALLING AND SUSTAINING A Rt NAVICULAR AVULSION FX ON 02/13/25 (HE WILL BE 6 WKS POST INJURY ON 03/27/25 -> HE HAS BEEN IN A TALL WALKING BOOT , PRESENTED TODAY WBAT Rt IN TALL BOOT W ORDERS TO WEAN Rt BOOT OVER NEXT 2 WEEKS AND ONCE FULL PAINFREE ROM IS OBTAINED, CAN BEGIN STRENGTHENING. 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 THE Pt HAS LIMITED ROM Rt ANKLE, RESIDUAL SWELLING, TIGHTNESS IN Rt HAMSTRING/ CALF, DECR FUNCTIONAL MOB BRIAN ... HIS PAIN FLUCTUATES IN Rt ANTEROING Rt LAT MALL. HE IS MOTIVATED TO REGIN FUNCT INDEP AND RTW.. HE AGREES W PT PLAON OF CARE.. Frequency and Duration: The patient will be seen 2 x WK x 8 WKS Short Term Goals: DECR Rt ANKLE / FOOT PAIN TO 2-3/10 INITIATE HEP IMPROVE ROM Rt ANKLE/ FOOT WEAN Rt TALL WALKING BOOT Dispatcher Automobile Rental Goals: INDEP HEP AND SX MGMT TECHN IMPROVED FUNCT MOB BRIAN/ EFFICIENT GAIT MECH LEVEL AND STAIRS WNL AROM Rt ANKLE WNL STRENGTH Rt LE SLS Rt x 15 SEC Treatment Plan: Modalities to reduce pain, spasms and effusion. Manual therapy to restore motion and function. Therapeutic exercise to improve strength and flexibility. Neuromuscular re-education for posture and balance. Therapeutic activities to return to functional activities of daily living. Electronically signed by: LEIDY GUARDADO,PT Please sign and return to therapist. Thank you for your referral.
--- NOTE | 2025-04-18 13:56 | MHC.PT.DC ---
[facility] [place] Office [place] Office [place] Office [address] Rehana Fernandes [address] [phone] F: [phone] F: [phone] F: [phone] F: [phone] Physical Therapy Discharge Report Diagnosis: AVULSION FRACTURE OF NAVICULAR BONE RIGHT FOOT :WBAT Rt LE IN BOOT-> ROM-> ONCE FULL PAINLESS ROM OBTAINED, CAN PROGRESS TO STRENGTHENING; CAN WEAN BOOT WITHIN 2 WEEKS OF STARTING PT Date of Surgery: Date of Evaluation: 03/25/25 Date of Discharge: 04/18/25 Treatments to Date: 5 Cancellations to Date: 2 No Shows to Date: 2 Discharge Status: Improved Function Visit Non-compliance Discharge Summary: BORA HAS MADE PROGRESS IN PT- HOWEVER, HIS ATTENDANCE W SCHED PT APPTS DECLINED, AND, HE IS NOW D/C PER THE PT DEPT- HE HAS A HEP AND HE HAS WEANED HIS BOOT. A FORMAL REASSESSMENT WAS NOT PERF DUE TO POOR ATTENDANCE. Electronically signed by: LEIDY GUARDADO,PT Please sign and return to therapist. Thank you for your referral.
== END 2025-04-18 13:57 | disposition home or self-care (01) ==
LOC: HO.PT 12:00
PROVIDERS: PCP Internal Medicine; Visit Provider Physician Assistant
DX: S92.251D Displaced fracture of navicular [scaphoid] of right foot, subsequent encounter for fracture with routine healing (principal)
CPT/HCPCS: 97110; 97162; 97530

== ENCOUNTER 2025-05-09 08:08 | Outpatient (REF) | payer OTHER, SELFPAY ==
--- NOTE | ~2025-05-09 | XR_ITS ---
EXAMINATION: XR FOOT, RIGHT CLINICAL INFORMATION: M79.673 - Pain in unspecified foot COMPARISON: 03/21/2025. 02/21/2025, 02/12/2025. TECHNIQUE: AP, lateral, and oblique views of the right foot. FINDINGS: No acute fracture, dislocation, or suspicious bone lesion. Normal bone mineralization. Tiny subtle calcifications dorsal to the anterior process of the talus and navicular again noted, unchanged from the prior radiograph. Normal alignment. Normal plantar arch. Joint spaces are preserved. No significant arthropathy. Soft tissues appear normal. XR/XR foot RT min 3V IMPRESSION: No significant interval change from 03/21/2025. Electronically signed by: Kana Gorves MD 05/09/2025 09:26 AM EDT
--- OUTSIDE RECORDS SUMMARY | 2025-05-12 08:15 | XMS_ITS | Clinical Summary ---
Author Organization [facility] Address [address] [place] [address] Phone Care Team Providers Care Information Lead Name Role Phone Ginger Mock MD Primary [...] HIV ONE-TIME SCREENING (18-6 5 YEARS) 12/17/2009 INFLUENZA VACCINE (#1) 2025 COVID-19 VACCINE (3 - 2024-2 6 season) 2025 04/14/2021, 03/24/2021 HEPATITIS A VACCINES Aged Out [...] Medical Devices Not on file Insurance [employer] Care Teams Information Lead Relationship Specialty Start Date End Date Ginger Mock MD [address] [place] [address] PCP - General Internal Medicine 04/08/20 Additional Source Comments The information contained in this document represents components of the legal health record. It is not the complete legal health record.[facility]
== END 2025-05-09 08:09 | disposition home or self-care (01) ==
LOC: HO.HOSX 08:08
PROVIDERS: Visit Provider Physician Assistant
DX: S92.251D Displaced fracture of navicular [scaphoid] of right foot, subsequent encounter for fracture with routine healing (principal); X58.XXXD Exposure to other specified factors, subsequent encounter
CPT/HCPCS: 73630

== ENCOUNTER 2025-05-09 09:08 | Outpatient (AMB) | payer OTHER, SELFPAY ==
--- NOTE | 2025-05-09 09:20 | MHC.OFFVIS ---
Intake Visit Reasons: OV - rt avulsion fx navicular bone, DOI 02/13/25 Intake Note: Bentley is a 34 year old male who presents today for a follow up of his right avulsion fracture of navicular bone, DOI 02/13/25. At his last visit was advised to continue wearing the tall walking boot with the anticipation of weaning off the boot with physical therapy. Patient reports he is doing well with wearing supported shoes. He is feeling better, having little to no pain at the moment. Allergies acetaminophen (From TYLENOL) Allergy (Unknown, Verified 05/09/25 09:25) HX LIVER FAILURE? HPI HPI OV - rt avulsion fx navicular bone, DOI 02/13/25: Details: Mr. Rodriguez is a 34-year-old male who presents to the office today for routine follow up of a right foot navicular fracture that he sustained on 02/13/2025. He presents to the office today in a supportive walking sneaker. He was attending physical therapy but was discharged due to poor tendons and given a home exercise program. He states that he isn't having any pain or difficulty with ambulation today. [facility] Medical History Elevated BP without diagnosis of hypertension Obesity (BMI 35.0-39.9 without comorbidity) Sciatica of right side associated with disorder of lumbosacral spine Degenerative disc disease at L5-S1 level Surgical History No pertinent past surgical history Family History Father Diabetes Hypertension Anxiety Mother Fibromyalgia Arthritis Other Mental health disorder Social History Housing: House Alcohol intake: former Patient Tobacco Use Status: Former Tobacco user Tobacco use type: Cigarette e-Cigarette/Vaping Use: Currently Using Second Hand Smoke Exposure: No service: No Current occupational status: employed 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 Patient is able to demonstrate dorsiflexion, plantar flexion, pronation and supination with no limitations. Sensation intact. Pedal Pulse intact. Psych Appearance: grossly normal Mental Status: mental status grossly normal Attitude: cooperative Assessment & Plan Assessment & Plan (1) Avulsion fracture of navicular bone of right foot: Code(s): S92.251A - Displaced fracture of navicular [scaphoid] of right foot, initial encounter for closed fracture Category: Medical Plan Mr. Rodriguez is a 34-year-old male who presents to the office today for routine follow up of a right foot navicular fracture that he sustained on 02/13/2025. He presents to the office today in a supportive walking sneaker. He was attending physical therapy but was discharged due to poor tendons and given a home exercise program. He states that he isn't having any pain or difficulty with ambulation today. While the office today I have given the patient a return to work note beginning Monday05/12/2025. He will return 3 days a week for the 1st 2 weeks and then return full-time regular duty. I recommended he continue with a home exercise program and continue wearing supportive footwear. He will follow up with Orthopedics p.r.n., sooner if needed. X-rays of the right foot which were obtained while in the office today and were reviewed by me, Sanjuana Lara PA-C, revealed right foot navicular fracture with routine healing. Orders: Orders XR foot RT min 3V Today M79.673 - Pain in unspecified foot Coding Level of Care Code Est Pt Level 3 (27284) Diagnoses Avulsion fracture of navicular bone of right foot S92.251A
== END 2025-05-09 09:36 | disposition home or self-care (01) ==
LOC: HO.HOS 09:09
PROVIDERS: PCP Internal Medicine; Visit Provider Physician Assistant
DX: S92.251A Displaced fracture of navicular [scaphoid] of right foot, initial encounter for closed fracture (principal)
CPT/HCPCS: 99213

== ENCOUNTER → 2025-05-09 09:11 | Outpatient (BNV) | payer OTHER, SELFPAY | PROVIDERS: Visit Provider Radiology Diagnostic Radiology | DX: M79.671 Pain in right foot (principal) | CPT/HCPCS: 73630 ==

== ENCOUNTER 2025-06-13 10:45 | Outpatient (REF) | payer OTHER, SELFPAY ==
--- OUTSIDE RECORDS SUMMARY | 2025-06-13 11:50 | XMS_ITS | Clinical Summary ---
Author Organization [facility] Address [address] [place] [address] Phone Care Team Providers Care Pharmaceutical Salesperson Name Role Phone Ginger Mock MD Primary [...] Medical Devices Not on file Insurance [employer] [facility] Address: [facility] [address] [place] [address] Care Teams Pharmaceutical Salesperson Relationship Specialty Start Date End Date Ginger Mock MD [address] [place] [address] PCP - General Internal Medicine 04/08/20 Additional Source Comments The information contained in this document represents components of the legal health record. It is not the complete legal health record.[facility]
[2025-06-13 15:03] LABS: Resp Syncy Virus RNA Qual PCR NEGATIVE (Negative); SARS COV2 PCR INHOUSE NEGATIVE (Negative)
== END 2025-06-13 10:46 | disposition home or self-care (01) ==
LOC: HO.LAB 10:45
PROVIDERS: PCP Internal Medicine; Visit Provider Nurse Practitioner Family
DX: J06.9 Acute upper respiratory infection, unspecified (principal); J02.9 Acute pharyngitis, unspecified; R51.9 Headache, unspecified; R09.89 Other specified symptoms and signs involving the circulatory and respiratory systems
CPT/HCPCS: 87637; 87880

== ENCOUNTER 2025-06-13 10:45 | Outpatient (AMB) | payer OTHER, SELFPAY ==
--- NOTE | 2025-06-13 10:48 | MHC.OFFWIV ---
Intake Vital Signs 06/13/25 10:49 Height 5 ft 9 in Weight 270 lb BMI 39.9 BP 120/78 Blood Pressure Location Lt brachial Position Sitting Respiration 16 Pulse 80 Pulse Source Pulse Oximeter Temp 97.5 F Temp Source Oral Pulse Oximetry (%) 97 Oxygen Delivery Method Room Air Intake Visit Reasons: ep sore throat headache body aches Intake Note: Patient coming in for sore throat , cough, headache and nausea x 3 days. 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 Do you need a note to return to daycare/school/sports/work: Yes HPI ep sore throat headache body aches HPI Details 34 year old male patient who presents to the [place] clinic today with report of a 3 day history sore throat, headache, fatigue, cough with yellow sputum. Has not taken his temp however he reports feeling hot and cold . Denies known exposure to sick contacts. No GI symptoms. [facility] Medical History Elevated BP without diagnosis of hypertension Obesity (BMI 35.0-39.9 without comorbidity) Sciatica of right side associated with disorder of lumbosacral spine Degenerative disc disease at L5-S1 level Surgical History No pertinent past surgical history Family History Father Diabetes Hypertension Anxiety Mother Fibromyalgia Arthritis Other Mental health disorder Social History Housing: House Alcohol intake: former Patient Tobacco Use Status: Former Tobacco user Tobacco use type: Cigarette e-Cigarette/Vaping Use: Currently Using Second Hand Smoke Exposure: No service: No Current occupational status: employed 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 Current occupational exposures/hazards: No Cognitive needs: No Hearing needs: No Vision needs: No Review of Systems Const All systems reviewed & are unremarkable except as noted in HPI and below Physical Exam Vital Signs: Last Vital Signs Temp 97.5 F 06/13/25 10:49 Pulse 80 06/13/25 10:49 Resp 16 06/13/25 10:49 BP 120/78 06/13/25 10:49 Pulse Ox 97 06/13/25 10:49 Oxygen Delivery Method Room Air 06/13/25 10:49 BMI result Body Mass Index 39.9 Const General: cooperative and no acute distress HEENT Head: Yes normal to inspection Ears: hearing grossly normal bilaterally General nose exam: Normal external nose present Face and sinus: Yes normal facial exam Mouth: Normal oral and palatal mucosa present Throat: Yes posterior oropharynx abnormal (erythema, mild tonsilar hypertrophy) Neck Neck: Yes no lymphadenopathy Resp Effort & Inspection: normal respiratory effort Auscultation: clear to auscultation bilaterally Cardio Rate: regular rate Rhythm: regular rhythm Skin General skin exam: no rashes or lesions noted Extrem General: Yes capillary refill normal and Yes no clubbing, cyanosis or edema Psych Appearance: grossly normal Mental Status: mental status grossly normal Speech and movement: Normal speech and movement present Results AMB Rapid Strep AMB Rapid Strep Negative Last Edit by Brandy Jay MA on 06/13/25 11:04 Assessment & Plan Assessment & Plan (1) Upper respiratory infection, viral: Code(s): J06.9 - Acute upper respiratory infection, unspecified Plan: Symptoms consistent with viral URI. Rapid strep negative. Cov/flu/rsv swab obtained in the office and patient aware he will be notified of results once these are available. We discussed conservative measures for treatment, including otc cold/flu products and throat lozenges, increased hydration, rest, and healthy food/vitamin intake. Work note provided. Patient can return to the clinic as needed if he does not improve with time and conservative measures. All questions were answered and patient verbalizes understanding and agrees to plan discussed today. Orders: Orders AMB Rapid Strep Screen Today Z13.9 - Encounter for screening, unspecified SARS-CoV2/FLU/RSV Today R09.89 - Other specified symptoms and signs involving the circulatory and respiratory systems Coding Level of Care Code Est Pt Level 4 (01528) Diagnoses Upper respiratory infection, viral J06.9
[2025-06-13 10:49] VITALS: BP 120/78; PULSE 80; RESP 16; TEMP 36.4; O2SAT 97; BMI 39.9
== END 2025-06-13 11:21 | disposition home or self-care (01) ==
PROVIDERS: PCP Internal Medicine; Visit Provider Nurse Practitioner Family
DX: Z13.9 Encounter for screening, unspecified (principal); J06.9 Acute upper respiratory infection, unspecified

== ENCOUNTER 2025-07-22 09:30 | Outpatient (AMB) | payer OTHER, SELFPAY ==
[2025-07-22 09:38] VITALS: BP 116/78; PULSE 58; RESP 18; O2SAT 96; BMI 39.6
--- NOTE | 2025-07-22 09:38 | MHC.PC.OV ---
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 Medication List - Last Reconciled 07/22/25 by Ginger Helms MD CPAP 16 cmH2O fluticasone propionate 50 mcg/actuation (Flonase Allergy Relief) 1 spray intranasal DAILY 30 days lisinopril 5 mg PO DAILY 90 days naloxone 4 mg/actuation (Narcan) 4 mg intranasal Q2M PRN 30 days pantoprazole 40 mg PO DAILY 90 days tramadol 50 mg PO Q8H PRN 30 days Tobacco use date assessed: 07/22/25 Dental Screening Dental Screen Date: 09/10/24 Did you have a dental visit in the last 12 months?: No Did you have a dental problem in the last 6 months where you did not have access to dental care?: No Was dental information given to patient?: No HPI HPI Comments History of Present Illness Details This is a 34-year-old male with hypertension, chronic low back pain, obstructive sleep apnea on CPAP and GERD that comes today complaining of right lower eyelid lesion that has been present for about 15 years. It is red and he has noticed an increase in size. He said his father had the same lesion and developed cancer in the area. Denies any eye pain. Able to move his eyes. No secretions or conjunctival injection. Regarding his hypertension blood pressure has been stable with lisinopril and reports no side effects. Blood pressure goal is equal or less than 130/80. He denies any chest pain or shortness on breath. Compliant with medications. He also has chronic low back pain due to lumbar degenerative disc disease and says that he owes money to [employer] and sports therefore not able to go there. He would like to be referred to [facility] pain management again. On tramadol as needed for back pain which he is aware can cause addiction and sedation. He also has obstructive sleep apnea on CPAP machine. Admits being compliant with it and feeling rested after using it. GERD has been stable with PPIs. He is obese with a BMI of 39.6 and was advised to do diet and exercise to reach BMI goal less than 30. [facility] Medical History (Updated 07/22/25 @ 09:59 by Ginger Helms MD) Elevated BP without diagnosis of hypertension Obesity (BMI 35.0-39.9 without comorbidity) Sciatica of right side associated with disorder of lumbosacral spine Degenerative disc disease at L5-S1 level Surgical History No pertinent past surgical history Family History Father Diabetes Hypertension Anxiety Mother Fibromyalgia Arthritis Other Mental health disorder Social History Housing: House Alcohol intake: former Patient Tobacco Use Status: Former Tobacco user Tobacco use type: Cigarette e-Cigarette/Vaping Use: Currently Using Second Hand Smoke Exposure: No service: No Current occupational status: employed 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 Current occupational exposures/hazards: No Cognitive needs: No Hearing needs: No Vision needs: No Questionnaire Thrive Questionnaire Date Thrive assessed: 07/22/25 I am a: Patient What is your living situation today?: I have a steady place to live Within the past 12 months, did the food you bought not last and you didn't have the money to get more?: Never true Within the past 12 months, did you worry whether your food would run out before you got money to buy more?: Never true Do you have trouble paying for medicines?: No Do you have trouble getting transportation to medical appointments?: No Do you have trouble paying your heating and electricity bill?: No Do you have trouble taking care of your child, family member or friend?: No Do you have trouble with day-to-day activities such as bathing, preparing meals, shopping, managing finances, etc.?: No Are you currently unemployed and looking for a job?: No Are you interested in more education?: I choose not to answer this question Currently or been in a relationship where the following occur: No concerns reported THRIVE Score: 0 JAMES-7 AMB Questionnaire JAMES-7 Date JAMES - 7 assessed: 01/22/25 Source: Developed by Drs. Talon Alvarado, Felisa Payne, Rip Chin and colleagues, with an educational janet from [employer]. Review of Systems Const All systems reviewed & are unremarkable except as noted in HPI and below Card Denies chest pain at rest, Denies chest pain with activity, Denies edema, Denies irregular heart rhythm, Denies claudication, Denies dyspnea, Denies dyspnea on exertion, Denies orthopnea, Denies paroxysmal nocturnal dyspnea and Denies slow heart rate Resp Denies cough, Denies dyspnea and Denies dyspnea on exertion Physical exam (Primary Care) Vital Signs: Last Vital Signs Pulse 58 07/22/25 09:38 Resp 18 07/22/25 09:38 BP 116/78 07/22/25 09:38 Pulse Ox 96 07/22/25 09:38 Oxygen Delivery Method Room Air 07/22/25 09:38 BMI result Body Mass Index 39.6 BMI Assessment/Plan discussion: High BMI High, discussed plan: lifestyle, weight reduction, dietary and physical activity Tobacco/Smoking Status: Tobacco use Status Tobacco use date assessed 07/22/25 07/22/25 09:42 Patient Tobacco Use Status Former Tobacco user 07/22/25 09:42 Tobacco use type Cigarette 07/22/25 09:42 e-Cigarette/Vaping Use Currently Using 07/22/25 09:42 Thrive Assessment: Date of Thrive Assessment Date Thrive assessed 07/22/25 07/22/25 09:42 Currently or been in a relationship where the following occur: No concerns reported Resp Effort & Inspection: normal respiratory effort Auscultation: clear to auscultation bilaterally Cardio Jugular venous distension: no JVD Rate: regular rate Rhythm: regular rhythm Heart sounds: S1 normal heart sound present and S2 normal heart sound present Extrem General: Yes full ROM Coding Level of Care Code Add On Preventative Visit Only Diagnoses Primary hypertension I10 Hypertension type: primary hypertension Gastroesophageal reflux disease, unspecified whether esophagitis present K21.9 Esophagitis presence: esophagitis presence not specified Lumbar back pain M54.50 ALEXANDR (obstructive sleep apnea) G47.33 Lesion of right eyelid H02.9 Time Spent (min) 21 Assessment & Plan Assessment & Plan (1) Hypertension: Code(s): I10 - Essential (primary) hypertension Category: Medical Qualifiers: Hypertension type: primary hypertension Qualified Code(s): I10 - Essential (primary) hypertension (2) GERD (gastroesophageal reflux disease): Code(s): K21.9 - Gastro-esophageal reflux disease without esophagitis Category: Medical Qualifiers: Esophagitis presence: esophagitis presence not specified Qualified Code(s): K21.9 - Gastro-esophageal reflux disease without esophagitis (3) Lumbar back pain: Code(s): M54.50 - Low back pain, unspecified Category: Medical (4) ALEXANDR (obstructive sleep apnea): Comment: Severe degree of sleep apnea. The AHI was 71/hr and the oxygen kosta was 48%. Code(s): G47.33 - Obstructive sleep apnea (adult) (pediatric) Category: Medical (5) Lesion of right eyelid: Code(s): H02.9 - Unspecified disorder of eyelid Category: Medical Plan Continue same meds. Keep blood pressure less than 130/80. Advised to do diet and exercise to reach BMI goal less than 30. Continue CPAP machine compliance. Referred to Ophthalmology. Referred to pain management for his back pain. Orders: Referrals Pain Management Referral M54.50 - Low back pain, unspecified Ophthalmology Referral H02.9 - Unspecified disorder of eyelid Medications: New cholecalciferol (vitamin D3) 25 mcg PO DAILY 90 caps 1RF 90 days
--- OUTSIDE RECORDS SUMMARY | 2025-07-22 12:15 | XMS_ITS | Clinical Summary ---
Author Organization [facility] Address [address] [place] [address] Phone Care Team Providers Care Plater Barrel Name Role Phone Ginger Mock MD Primary [...] Medical Devices Not on file Insurance [employer] Care Teams Plater Barrel Relationship Specialty Start Date End Date Ginger Mock MD [address] [place] [address] PCP - General Internal Medicine 04/08/20 Additional Source Comments The information contained in this document represents components of the legal health record. It is not the complete legal health record.[facility]
== END 2025-07-22 09:55 | disposition home or self-care (01) ==
LOC: HO.HMCH 09:31
PROVIDERS: PCP Internal Medicine; Visit Provider Internal Medicine
DX: I10 Essential (primary) hypertension (principal); K21.9 Gastro-esophageal reflux disease without esophagitis; M54.50 Low back pain, unspecified; G47.33 Obstructive sleep apnea (adult) (pediatric); H02.9 Unspecified disorder of eyelid